=== PATIENT | female | born 1975 | race Caucasian/White ===

== ENCOUNTER 2023-02-01 12:06 | Outpatient (CLI) | payer BC, SELFPAY ==
[2023-02-01 21:41] LABS: Basophils Absolute Auto 0.02 K/uL (0.00-0.30); Basophils Percent Auto 0.3 % (0.0-3.0); Eosinophils Absolute Auto 0.07 K/uL (0.00-0.50); Hematocrit 45.3 % (33.0-51.0); Hemoglobin* 14.2 gm/dL (12.0-16.0); Immature Granulocytes Abs Auto 0.01 K/uL (0.00-0.30); Immature Granulocytes Pct Auto 0.1 %; Lymphocytes Absolute Auto 1.81 K/uL (0.90-2.90); Lymphocytes Percent Auto 25.6 % (20-44); Mean Corpuscular HGB Conc 31 gm/dL (32-36); Mean Corpuscular Hemoglobin 26 pg (26-34); Mean Corpuscular Volume 84 fL (80-100); Monocytes Percent Auto 5.6 % (0.0-11.0); Neutrophils Absolute Auto 4.77 K/uL (1.7-7.0); Neutrophils Percent Auto 67.4 % (42.0-72.0); Platelet Count* 380 K/uL (140-440); RDW Coefficient of Variation % 13.3 % (11.5-15.5); Red Blood Count 5.39 m/uL (4.00-5.20); White Blood Count* 7.08 K/uL (4.50-11.00)
[2023-02-01 21:42] LABS: Albumin* 4.3 g/dL (3.3-5.0); Chloride* 105 mmol/L (96-114)
[2023-02-01 21:43] LABS: Potassium* 5.2 mmol/L (3.6-5.1); Slide Review Reflex No; Sodium* 139 mmol/L (135-149)
[2023-02-01 21:45] LABS: Aspartate Amino Transferase* 26 U/L (12-35); Bilirubin Total* 0.3 mg/dL (0.1-1.5); Carbon Dioxide* 27 mmol/L (20-32); Creatinine* 0.7 mg/dL (0.5-1.5); Estimated Glomerular Filt Rate 108 ml/min
[2023-02-01 21:46] LABS: Alanine Aminotransferase* 24 U/L (4-35); Alkaline Phosphatase* 83 U/L (40-150); Blood Urea Nitrogen* 9 mg/dL (5-24); Calcium* 9.4 mg/dL (8.4-10.6); Glucose* 99 mg/dL (60-115)
[2023-02-01 21:56] LABS: NT Pro B Type NatriureticPept* 60 pg/mL
[2023-02-01 22:13] LABS: Amylase* 50 U/L (18-89); Lipase* 71 U/L (23-300)
[2023-02-03 22:56] LABS: Prolactin 6.3 ng/mL (2.8-29.2)
== END 2023-02-01 12:07 | disposition home or self-care (01) ==
PROVIDERS: PCP Nurse Practitioner Family; Visit Provider Nurse Practitioner Family
DX: R63.5 Abnormal weight gain (principal); R10.13 Epigastric pain; R06.00 Dyspnea, unspecified
CPT/HCPCS: 80053; 82150; 83690; 83880; 84146; 84443; 85025

== ENCOUNTER 2023-02-25 09:19 | Inpatient (IN) | payer BC, SELFPAY ==
[2023-02-25 09:25] VITALS: BP 142/100; PULSE 94; RESP 14; TEMP 36.5; O2SAT 97; BMI 28.4
--- NOTE | 2023-02-25 09:33 | ED.ABDPAIN ---
HPI - Abdominal Pain General Time Seen by Provider: 09:33 Date Seen: 02/25/23 Chief Complaint: Abdominal Pain Stated Complaint: Gallbladder issues--from US Time Seen by Provider: 02/25/23 09:26 Source: patient, RN notes reviewed and old records reviewed Mode of arrival: ambulatory Limitations: no limitations History of Present Illness HPI narrative: Patient is a 47-year-old female referred to the ER by our radiologist Dr. Renee after her right upper quadrant ultrasound reportedly is showing cholecystitis. Patient notes that her abdominal pain is worse after having the ultrasound done. She notes she really has not been able to eat anything in 3 days, has had abdominal pain. No fevers. No change in bowel habits. She has a bit of a complex history and was seen by Brent San in the [place] [facility] on February 01 to establish care and then follow-up February 12. Patient has been complaining of shortness of breath, weight gain, abdominal pain. 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 Her labs were reviewed from February 01 in her CBC and liver functions were normal. She was started on chlorthalidone on the February 12 visit. She feels that this has decreased her lower extremity edema. She had a normal chest x-ray done on 02/01. She has not had any chest pain. Her fatigue has been worse the last 3 days, has been complaining of fatigue as well. Review reader to Brent's detailed notes from February 01 and February 12. She is status post hysterectomy, thus no chance of . Patient does not report having had her echo that was to be ordered outpatient. I do not see any report in the system either. elicited complaint: abdominal pain Related Data Hx Last Menstrual Period: Status post hysterectomy Patient : No Home Medications Medication Instructions Recorded Confirmed escitalopram oxalate 20 mg tablet 20 mg PO QDAY 05/24/22 02/12/23 octreotide,microspheres 20 mg 20 mg IM Q4W 05/24/22 02/12/23 intramuscular susp, extended release venlafaxine 150 mg tablet,extended 150 mg PO QAM 05/24/22 02/12/23 release 24 hr trazodone 100 mg tablet 200 mg PO QHS 02/01/23 02/12/23 Previous Rx's Medication Instructions Recorded omeprazole magnesium 20 mg 20 mg PO QDAY 30 days #30 tabs 02/01/23 tablet,delayed release (Prilosec OTC) chlorthalidone 25 mg tablet 25 mg PO ONCE 90 days #90 tabs 02/12/23 Allergies Allergy/AdvReac Type Severity Reaction Status Date / Time No Known Drug Allergies Allergy Verified 02/25/23 09:30 Review of Systems Status of ROS Reports: 10 or more systems reviewed and unremarkable except as noted in History and below [facility] (Updated 02/25/23 @ 12:25 by Yumiko Mckeon MD) History of blood transfusion (2010) ?Z92.89 - Personal history of other medical treatment (ICD-10) History of prolactinoma (2009) ?Z86.018 - Personal history of other benign neoplasm (ICD-10) History of traumatic injury of head (1990) ?Z87.828 - Personal history of other (healed) physical injury and trauma (ICD-10) Hx of abnormal cervical Pap smear ?Z87.42 - Personal history of other diseases of the female genital tract (ICD-10) Surgical History (Updated 02/17/23 @ 12:53 by Margaret Peck) History of brain surgery (2009) ?Z98.890 - Other specified postprocedural states (ICD-10) History of bunionectomy (1997) ?Z98.890 - Other specified postprocedural states (ICD-10) History of carpal tunnel release of both wrists ?Z98.890 - Other specified postprocedural states (ICD-10) History of hysterectomy (06/02/16) ?Z90.710 - Acquired absence of both cervix and uterus (ICD-10) History of rectal surgery (06/02/16) ?Z98.890 - Other specified postprocedural states (ICD-10) History of tonsillectomy ?Z90.89 - Acquired absence of other organs (ICD-10) Hx of hemorrhoidectomy ?Z98.890 - Other specified postprocedural states (ICD-10) Family History (Updated 02/17/23 @ 12:55 by Margaret Peck) Mother Alcohol dependence Tuberculosis Father Alzheimers disease Uncle Cancer Other Ankylosing spondylitis Social History (Updated 01/28/23 @ 09:05 by Bess Palmer ~ PSR) Narrative: , 3 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, [employer] Nicotine dependence-vaporizer, ex-smoker Rarely consumes alcohol Does not exercise, active lifestyle with kids Smoking Status: Former smoker How often do you have a drink containing alcohol: never How often do you have six or more drinks on one occasion: Never AUDIT-C Alcohol total score: 0 Non-prescribed substance use: denies use service: No Exam Const: Vital Signs, click to edit/add: Vital Signs - 24 hr 02/25/23 09:25 02/25/23 09:37 Temperature 97.7 F Pulse Rate [Right Pulse Oximeter] 94 Respiratory Rate 14 Blood Pressure [Ri ght Upper Arm] 142/100 H Pulse Oximetry 97 100 Oxygen Delivery Me thod Room Air Documenting provider has reviewed patient's vital signs: yes Common normals: no apparent distress, average body habitus, oriented x3, no limitations, healthy appearing and alert General appearance: cooperative, comfortable, well kempt and well developed HENMT: Common normals: normocephalic, head/scalp atraumatic, hearing grossly normal bilaterally and external nose normal Head and scalp: normocephalic and atraumatic Nose: external nose normal Eye: Common normals: PERRL, EOMs intact bilaterally, conjunctivae normal and no scleral icterus Conjunctiva: conjunctiva(e) normal Pupil: PERRL Neck & C-Spine: Common normals: full ROM, no lymphadenopathy, supple and no JVD Chest: Other: Note, do not hear a cardiac murmur today but it has been noted prior. Did auscultate twice just to make sure I was not missing it. Resp: Common normals: normal respiratory effort, no retractions, no use of accessory muscles and clear to auscultation bilaterally Effort & inspection: able to speak in complete sentences Auscultation: clear to auscultation bilaterally Cardio: Common normals: no JVD, regular rate, regular rhythm, S1 normal heart sound, S2 normal heart sound, no gallops, no clicks and no murmurs Rate: regular rate Rhythm: regular rhythm Heart sounds: S1 normal and S2 normal GI: Common normals: Normal to inspection, nondistended, normoactive bowel sounds present and soft to palpation Palpation: soft Other: Has right upper quadrant tenderness without rebound or true guarding on my exam. Do not feel any organomegaly. Extremity: Common normals: no pedal edema Other: No pretibial edema on examination. Neuro: Common normals: oriented x3 Sensorium/orientation: alert Speech: speech normal Psych: Appearance: well kempt Skin: Narrative: Some facial acne but otherwise no rash noted. Course Course Hospital Course: Patient has complex underlying medical history but notably normal prolactin and TSH on her labs. Will be getting EKG, consider chest x-ray if needed but just had 1 on 02/01 and lungs are clear and cleared peripheral edema per report. Her ultrasound is showing acute cholecystitis on report from the radiologist. Need to obtain full complement of labs to see where she is at today, make sure there is no evidence of any pancreatitis. Will talk to our general surgeon on-call. Will do a D-dimer and troponin, review repeat her EKG given her shortness of breath and peripheral edema symptoms. I do not detect cardiac murmur today, possibly the fluid overload she was experiencing has been helped with the chlorthalidone. She believes she has been on that about 10 days now. Will screen for COVID as well. Reevaluation(s) Reevaluation #1: Patient's potassium has come back low at 2.8. It was normal prior to the chlorthalidone. This is very likely to the diuretic and is likely responsible for her EKG changes. However, given her complaints of shortness of breath, cardiac murmur heard before as well as the EKG changes, do think we should optimize patient's safety and know that we have a normal echo prior to surgery. I have ordered this urgently. Time: 10:58 Consultations Consultation #1: Have given a preliminary report to our surgeon Dr. Cloud. She will stop by later after her next case, by that time hopefully we will have more input and labs. Time: 10:22 Consultation #2: Have spoken with Dr. Hernandez regarding this patient, he does accept care. Did review with him the hypokalemia, our approach to replacing it. The surgeon was not strongly in support of this patient needing antibiotics at this time. I will leave this to the hospitalist to decide later if they feel she should have evidence of requiring it. Otherwise, plan is for surgery tomorrow pending normal cardiac echo. Presumably it is the hypokalemia that is responsible for her EKG changes. Nonetheless, will still obtain echo to ensure no regional wall motion abnormalities or valvular dysfunction. Time: 12:23 Vital Signs Vital signs: Initial Vital Signs Temperature 97.7 F 02/25/23 09:25 Temperature Source Temporal Artery Scan 02/25/23 09:25 Pulse Rate 94 02/25/23 09:25 Respiratory Rate 14 02/25/23 09:25 Blood Pressure 142/100 H 02/25/23 09:25 Blood Pressure Mean 114 H 02/25/23 09:25 Blood Pressure Position Sitting 02/25/23 09:25 Pulse Oximetry 97 02/25/23 09:25 Oxygen Delivery Method Room Air 02/25/23 09:25 Vital Signs Temperature 97.7 F 02/25/23 09:25 Pulse Rate 94 02/25/23 09:25 Respiratory Rate 14 02/25/23 09:25 Blood Pressure 142/100 H 02/25/23 09:25 Pulse Oximetry 97 02/25/23 09:25 Oxygen Delivery Method Room Air 02/25/23 09:25 Temperature 97.7 F 02/25/23 09:25 Pulse Rate 94 02/25/23 09:25 Respiratory Rate 14 02/25/23 09:25 Blood Pressure 142/100 H 02/25/23 09:25 Pulse Oximetry 100 02/25/23 09:37 Oxygen Delivery Method Room Air 02/25/23 09:25 MDM - Abdominal Pain Lab Data Attestation: I reviewed the patient's lab results. Labs: Lab Results 02/25/23 02/25/23 02/25/23 Range/Units 09:37 10:05 10:10 WBC 8.01 (4.50-11.00) K/uL RBC 5.56 H (4.00-5.20) m/uL Hgb 14.5 (12.0-16.0) gm/dL Hct 44.3 (33.0-51.0) % MCV 80 (80-100) fL MCH 26 (26-34) pg MCHC 33 (32-36) gm/dL RDW Coeff of Susan 12.9 (11.5-15.5) % Plt Count 453 H (140-440) K/uL Neut % (Auto) 70.5 (42.0-72.0) % Lymph % (Auto) 21.6 (20-44) % Hendry % (Auto) 6.6 (0.0-11.0) % Eos % (Auto) 0.5 (0.0-7.0) % Baso % (Auto) 0.4 (0.0-3.0) % Neut # (Auto) 5.65 (1.7-7.0) K/uL Lymph # (Auto) 1.73 (0.90-2.90) K/uL Hendry # (Auto) 0.50 (0.00-0.90) K/UL Eos # (Auto) 0.04 (0.00-0.50) K/uL Baso # (Auto) 0.03 (0.00-0.30) K/uL D-Dimer Quant (PE/DVT) 0.28 (0.00-0.50) ug/ml Sodium 133 L (135-149) mmol/L Potassium 2.8 L* (3.6-5.1) mmol/L Chloride 92 L (96-114) mmol/L Carbon Dioxide 35 H (20-32) mmol/L BUN 13 (5-24) mg/dL Creatinine 0.9 (0.5-1.5) mg/dL Estimated Creat Clear 81.63 Estimated GFR 80 ml/min Glucose 116 H (60-115) mg/dL Lactate 1.9 (0.5-1.9) mmol/L Calcium 8.8 (8.4-10.6) mg/dL Total Bilirubin 0.4 (0.1-1.5) mg/dL Direct Bilirubin 0.2 (0.0-0.5) mg/dL AST 30 (12-35) U/L ALT 28 (4-35) U/L Alkaline Phosphatase 99 (40-150) U/L C-Reactive Protein 1.4 H (0.5-1.0) mg/dL NT-Pro-B Natriuret Pep 38 pg/mL Total Protein 7.6 (6.0-8.3) g/dL Albumin 4.4 (3.3-5.0) g/dL Lipase 167 (23-300) U/L SARS-CoV-2 (PCR) Negative SARS-CoV-2 (Negative) Influenza Type A (PCR) Negative PCR FLU A (Negative) Influenza Type B (PCR) Negative PCR FLU B (Negative) RSV (PCR) Negative PCR RSV (Negative) POC Troponin I 0.00 L (0.01-0.04) ng/ml Imaging Data US - abdomen: Attestation: I have reviewed the pertinent imaging results. Radiologist's impression: Patient: MODESTA OVALLE Facility:?[facility] Patient ID:?[id number] Site Patient ID:?[id number]. Site :?[id number] Study:?US Abdomen DR RENEE TO READ-02/25/2023 9:29:45 AM Ordering Physician:Olivia Beauchamp Final Report: INDICATION: EPIGASTRIC AND RUQ PAIN COMPARISON: CT 08/14/2021 TECHNIQUE: Real time cuellar scale imaging and color Doppler analysis was performed of the right upper quadrant. FINDINGS: Mild coarsening of the hepatic echotexture. There is an area of decreased echogenicity posteriorly measuring 2.4 x 1.8 x 2.7 cm. There is a normal appearance of the hepatic IVC and proximal abdominal aorta. There is no evidence of ascites. The gallbladder is distended and there is a moderately large amount of sludge and echogenic foci within the gallbladder lumen. The gallbladder wall measures 3 mm in thickness. The common bile duct measures 6 mm in diameter at the level of the jose hepatis. The pancreas is not well-visualized. There is no evidence of a stone or hydronephrosis within the right kidney. The right kidney measures 13.0 cm in length. IMPRESSION: Distended gallbladder with gallbladder sludge and cholesterol stones along with positive sonographic Bear`s sign concerning for cholecystitis. This was discussed with the referring clinician and the patient was sent to the emergency department. Mild fatty steatosis with indeterminate area of decreased echogenicity within the left hepatic lobe posteriorly measuring 2.7 cm. Incomplete visualization of the pancreas due to overlying bowel gas. Dictated by Jeremías Renee MD @ 02/25/2023 10:12:20 AM (Electronic Signature) ECG Data Attestation: I personally reviewed and interpreted this ECG as follows: (Normal sinus rhythm, 88 beats per minute. Q-waves V1 V2. Mild downsloping ST segment changes inferior and lateral precordial leads, certainly be through through V6. This seems to be changed from the EKG on February 01.) ECG interpretation date: 02/25/23 ECG interpretation time: 10:40 Critical Care Time Critical Care Time Critical Care Time: No Discharge Plan Discharge Clinical Impression: Acute cholecystitis, Acute hypokalemia Patient Disposition: Admitted As Inpatient Condition: Stable Prescriptions: No Action venlafaxine 150 mg tablet extended release 24 hr 150 mg PO QAM escitalopram oxalate 20 mg tablet 20 mg PO QDAY octreotide,microspheres 20 mg suspension,extended rel recon 20 mg IM Q4W trazodone 100 mg tablet 200 mg PO QHS omeprazole magnesium [Prilosec OTC] 20 mg tablet,delayed release (DR/EC) 20 mg PO QDAY 30 Days Qty: 30 0RF chlorthalidone 25 mg tablet 25 mg PO ONCE 90 Days Qty: 90 3RF Follow Up/Referrals: Quynh San, [employer], [employer]GER [Primary Care Provider] -
[2023-02-25 09:37] VITALS: O2SAT 100
[2023-02-25 10:16] LABS: Basophils Absolute Auto 0.03 K/uL (0.00-0.30); Basophils Percent Auto 0.4 % (0.0-3.0); Eosinophils Absolute Auto 0.04 K/uL (0.00-0.50); Eosinophils Percent Auto 0.5 % (0.0-7.0); Hematocrit 44.3 % (33.0-51.0); Hemoglobin* 14.5 gm/dL (12.0-16.0); Immature Granulocytes Abs Auto 0.03 K/uL (0.00-0.30); Immature Granulocytes Pct Auto 0.4 %; Lymphocytes Absolute Auto 1.73 K/uL (0.90-2.90); Lymphocytes Percent Auto 21.6 % (20-44); Mean Corpuscular HGB Conc 33 gm/dL (32-36); Mean Corpuscular Hemoglobin 26 pg (26-34); Mean Corpuscular Volume 80 fL (80-100); Monocytes Percent Auto 6.6 % (0.0-11.0); Neutrophils Absolute Auto 5.65 K/uL (1.7-7.0); Neutrophils Percent Auto 70.5 % (42.0-72.0); Platelet Count* 453 K/uL (140-440); RDW Coefficient of Variation % 12.9 % (11.5-15.5); Red Blood Count 5.56 m/uL (4.00-5.20); White Blood Count* 8.01 K/uL (4.50-11.00)
[2023-02-25 10:20] LABS: Slide Review Reflex No
[2023-02-25 10:23] LABS: Lactate* 1.9 mmol/L (0.5-1.9)
[2023-02-25] MEDS: KETOROLAC 15 MG/ML inj IVP (10:31)
[2023-02-25 10:37] LABS: D Dimer Quantitative* 0.28 ug/ml (0.00-0.50)
[2023-02-25 10:39] LABS: Albumin* 4.4 g/dL (3.3-5.0); Chloride* 92 mmol/L (96-114)
[2023-02-25 10:40] LABS: Sodium* 133 mmol/L (135-149)
[2023-02-25 10:42] LABS: Creatinine* 0.9 mg/dL (0.5-1.5); Est. Creatinine Clearance* 81.63; Estimated Glomerular Filt Rate 80 ml/min
[2023-02-25 10:43] LABS: Alanine Aminotransferase* 28 U/L (4-35); Alkaline Phosphatase* 99 U/L (40-150); Aspartate Amino Transferase* 30 U/L (12-35); Bilirubin Direct* 0.2 mg/dL (0.0-0.5); Bilirubin Total* 0.4 mg/dL (0.1-1.5); Blood Urea Nitrogen* 13 mg/dL (5-24); Calcium* 8.8 mg/dL (8.4-10.6); Carbon Dioxide* 35 mmol/L (20-32); Glucose* 116 mg/dL (60-115); Lipase* 167 U/L (23-300); Total Protein* 7.6 g/dL (6.0-8.3)
[2023-02-25 10:46] LABS: C Reactive Protein* 1.4 mg/dL (0.5-1.0)
[2023-02-25 10:48] LABS: Potassium* 2.8 mmol/L (3.6-5.1)
[2023-02-25 10:56] LABS: PCR FLU A Negative PCR FLU A (Negative); PCR FLU B Negative PCR FLU B (Negative); PCR RSV Negative PCR RSV (Negative)
[2023-02-25 11:01] LABS: SARS PCR* Negative SARS-CoV-2 (Negative)
[2023-02-25 11:07] LABS: NT Pro B Type NatriureticPept* 38 pg/mL
--- NOTE | 2023-02-25 12:01 | P.GSCN_ITS ---
History of Present Illness Consult details Date Seen: 02/25/23 Consult date: 02/25/23 Narrative: Patient is a 47-year-old female who was undergoing an abdominal ultrasound as an outpatient for on and off abdominal pain for the last 6 months. She states that her symptoms have been feeling bloated, nauseous and having pain on the right side. The pain has been coming and going, but did seem to be triggered by the ultrasound exam and is now not going away. She also elicits an unintentional 50 lb weight gain and was recently started on a diuretic. She does think that this has helped with her lower extremity swelling. She was also recently diagnosed with a heart murmur, but has not had this worked up with an echo yet. Her abdominal surgical history is positive for a rectal prolapse repair x2, appendectomy in some sort of surgery for a still (patient was unsure exactly what occurred). She denies any problems with anesthesia, bleeding or blood clots. Review of Systems Status of ROS: Reports: 6 or more systems reviewed and unremarkable except as noted in History and below [facility] Medical History (Updated 02/25/23 @ 12:06 by Lizzy Cloud MD) History of blood transfusion (2010) ?Z92.89 - Personal history of other medical treatment (ICD-10) History of prolactinoma (2009) ?Z86.018 - Personal history of other benign neoplasm (ICD-10) History of traumatic injury of head (1990) ?Z87.828 - Personal history of other (healed) physical injury and trauma (ICD-10) Hx of abnormal cervical Pap smear ?Z87.42 - Personal history of other diseases of the female genital tract (ICD-10) Surgical History (Updated 02/17/23 @ 12:53 by Margaret Peck) History of brain surgery (2009) ?Z98.890 - Other specified postprocedural states (ICD-10) History of bunionectomy (1997) ?Z98.890 - Other specified postprocedural states (ICD-10) History of carpal tunnel release of both wrists ?Z98.890 - Other specified postprocedural states (ICD-10) History of hysterectomy (06/02/16) ?Z90.710 - Acquired absence of both cervix and uterus (ICD-10) History of rectal surgery (06/02/16) ?Z98.890 - Other specified postprocedural states (ICD-10) History of tonsillectomy ?Z90.89 - Acquired absence of other organs (ICD-10) Hx of hemorrhoidectomy ?Z98.890 - Other specified postprocedural states (ICD-10) Family History (Updated 02/17/23 @ 12:55 by Margaret Peck) Mother Alcohol dependence Tuberculosis Father Alzheimers disease Uncle Cancer Other Ankylosing spondylitis Social History (Updated 01/28/23 @ 09:05 by Bess Palmer ~ PSR) Narrative: , 3 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, [employer] Nicotine dependence-vaporizer, ex-smoker Rarely consumes alcohol Does not exercise, active lifestyle with kids Smoking Status: Former smoker How often do you have a drink containing alcohol: never How often do you have six or more drinks on one occasion: Never AUDIT-C Alcohol total score: 0 Non-prescribed substance use: denies use service: No Meds Home Medications and Allergies Home Medications Medication Instructions Recorded Confirmed Type escitalopram oxalate 20 mg tablet 20 mg PO QDAY 05/24/22 02/12/23 History octreotide,microspheres 20 mg 20 mg IM Q4W 05/24/22 02/12/23 History intramuscular susp, extended release venlafaxine 150 mg tablet,extended 150 mg PO QAM 05/24/22 02/12/23 History release 24 hr trazodone 100 mg tablet 200 mg PO QHS 02/01/23 02/12/23 History Allergies Allergy/AdvReac Type Severity Reaction Status Date / Time No Known Drug Allergies Allergy Verified 02/25/23 09:30 Exam Narrative: Exam Narrative: General: Alert and oriented, no acute distress. Respiratory: Equal breath rise bilaterally, maintained on room air CV: Regular rhythm rate, well perfused Abdomen: Mild distention soft, tender to palpation right upper quadrant with no guarding or rebound. Well-healed surgical scar incisions. Const: Vital Signs, click to edit/add: Vital Signs - 24 hr 02/25/23 09:25 02/25/23 09:37 Temperature 97.7 F Pulse Rate [Right Pulse Oximeter] 94 Respiratory Rate 14 Blood Pressure [Ri ght Upper Arm] 142/100 H Pulse Oximetry 97 100 Oxygen Delivery Me thod Room Air Results Labs Labs: Abnormal lab results 02/25/23 02/25/23 Range/Units 09:37 10:05 RBC 5.56 H (4.00-5.20) m/uL Plt Count 453 H (140-440) K/uL Sodium 133 L (135-149) mmol/L Potassium 2.8 L* (3.6-5.1) mmol/L Chloride 92 L (96-114) mmol/L Carbon Dioxide 35 H (20-32) mmol/L Glucose 116 H (60-115) mg/dL C-Reactive Protein 1.4 H (0.5-1.0) mg/dL POC Troponin I 0.00 L (0.01-0.04) ng/ml Diabetes panel 02/25/23 Range/Units 10:05 Sodium 133 L (135-149) mmol/L Potassium 2.8 L* (3.6-5.1) mmol/L Chloride 92 L (96-114) mmol/L Carbon Dioxide 35 H (20-32) mmol/L BUN 13 (5-24) mg/dL Creatinine 0.9 (0.5-1.5) mg/dL Glucose 116 H (60-115) mg/dL Calcium 8.8 (8.4-10.6) mg/dL AST 30 (12-35) U/L ALT 28 (4-35) U/L Alkaline Phosphatase 99 (40-150) U/L Total Protein 7.6 (6.0-8.3) g/dL Albumin 4.4 (3.3-5.0) g/dL Calcium panel 02/25/23 Range/Units 10:05 Calcium 8.8 (8.4-10.6) mg/dL Albumin 4.4 (3.3-5.0) g/dL Pituitary panel 02/25/23 Range/Units 10:05 Sodium 133 L (135-149) mmol/L Potassium 2.8 L* (3.6-5.1) mmol/L Chloride 92 L (96-114) mmol/L Carbon Dioxide 35 H (20-32) mmol/L BUN 13 (5-24) mg/dL Creatinine 0.9 (0.5-1.5) mg/dL Glucose 116 H (60-115) mg/dL Calcium 8.8 (8.4-10.6) mg/dL Adrenal panel 02/25/23 Range/Units 10:05 Sodium 133 L (135-149) mmol/L Potassium 2.8 L* (3.6-5.1) mmol/L Chloride 92 L (96-114) mmol/L Carbon Dioxide 35 H (20-32) mmol/L BUN 13 (5-24) mg/dL Creatinine 0.9 (0.5-1.5) mg/dL Glucose 116 H (60-115) mg/dL Calcium 8.8 (8.4-10.6) mg/dL Total Bilirubin 0.4 (0.1-1.5) mg/dL AST 30 (12-35) U/L ALT 28 (4-35) U/L Alkaline Phosphatase 99 (40-150) U/L Total Protein 7.6 (6.0-8.3) g/dL Albumin 4.4 (3.3-5.0) g/dL All other labs normal. Imaging Abdominal ultrasound report/results: report reviewed and image reviewed Assessment and Plan Assessment and plan (1) Acute cholecystitis: Status: Acute Plan Patient is a 47-year-old female who presents to the emergency department from Radiology with severe right upper quadrant abdominal pain. Workup was obtained with ultrasound demonstrating a significant amount of gallbladder sludge and gallbladder wall thickening. Her clinical history is consistent with acute cholecystitis. Her labs demonstrate no leukocytosis or abnormal liver panel, making this decision for choledocholithiasis low. On BMP she does have hypokalemia. She also has a history of an newly diagnosed murmur and peripheral edema. Agree with admitting to the hospital for potassium replacement and further cardiology workup before pursuing any operative intervention. I had a detailed conversation with the patient regarding the diagnosis of acute cholecystitis. We discussed the treatment options including observation with diet modification and laparoscopic cholecystectomy. We discussed the risks of surgery (including but not limited to) the risks of bleeding, infection, injury to other structures in the abdomen including bile duct injury, bile leak and conversion to an open operation. We discussed the possibility that the patient's pain not improve with surgery. We discussed the possibility of permanent post-operative diarrhea that may require medical management. Additionally, the conceivably of complications requiring additional surgery or further hospitalization were also discussed including the risks of [place], respiratory failure, stroke and blood clots. The patient voiced an understanding of our conversation, had the opportunity to ask questions, agreed to accept the risks of surgery and asked that we proceed with surgery. -hospitalist consulted, appreciate their management and preoperative optimization -repeat liver panel in the morning -patient tentatively on the schedule for laparoscopic cholecystectomy tomorrow morning at 11:00 a.m.
[2023-02-25] MEDS: MORPHINE 2 MG/ML inj IVP ×5 (12:07→22:28)
[2023-02-25] MEDS: ONDANSETRON 2 MG/ML inj 4 MG IVP (12:08)
[2023-02-25 13:14] VITALS: BP 115/80; PULSE 96; RESP 14; TEMP 37; O2SAT 96; O2SAT 99; BMI 28.4
[2023-02-25] MEDS: LACTATED RINGERS 1000 ML 1,000 ML 125 ML IV (14:31)
[2023-02-25] MEDS: POTASSIUM BICARB 25 MEQ EFFERVESCENT TAB PO ×4 (14:32→21:02)
[2023-02-25 14:41] LABS: Magnesium* 2.6 mg/dL (1.5-2.6)
[2023-02-25 15:00] VITALS: BP 124/94; PULSE 85; RESP 18; TEMP 36.7; O2SAT 99
--- NOTE | 2023-02-25 16:50 | P.IMHP_ITS ---
Hospitalist- H&P: HPI History of Present Illness Date Seen: 02/25/23 Chief complaint: Gallbladder issues--from US Narrative: 47-year-old female admitted with abdominal pain. She was admitted to the hospital after obtaining an abnormal right upper quadrant ultrasound in the radiology department today. Ultrasound was consistent with findings of acute cholecystitis. Patient has been having worsening postprandial nausea and bloating and pain over months. Brent San CNP, her primary care provider had referred her for the ultrasound to evaluate this. She has not had any fever. She reports no problems with her bowels. No diarrhea, constipation, melena, bleeding, ramos colored stools. She does note that she has had possibly 50 lb of weight gain over the last 5 months. The cause for this is uncertain. She has contacted her supervisory clerk, Dr. 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 In clinic she was also seen to have lower extremity edema and there was thought to be some fluid weight gain. She was started on chlorthalidone for that about 10 days ago. She does not have any heart history. Two years ago she was having recurrent hospitalizations with colitis. She had an episode in April of 2020 and was hospitalized in December of 2020. On both occasions she had crampy abdominal pain. She subsequently did have a colonoscopy with Dr. Brewer with relatively normal findings and relatively normal biopsy results. She has had no obvious colitis since that time. Review of Systems Narrative: She reports she has generally been doing well except for the past few months of postprandial pain and bloating and the recent weight gain. No fevers. No respiratory illness or chest pain. She does report that she thinks she has had somewhat progressive dyspnea with exertion over the last few weeks. No orthopnea. [facility] Medical History (Updated 02/25/23 @ 17:08 by Parth Hernandez MD) Edema ?R60.9 - Edema, unspecified (ICD-10) History of blood transfusion (2010) ?Z92.89 - Personal history of other medical treatment (ICD-10) History of prolactinoma (2009) ?Z86.018 - Personal history of other benign neoplasm (ICD-10) History of traumatic injury of head (1990) ?Z87.828 - Personal history of other (healed) physical injury and trauma (ICD-10) Hx of abnormal cervical Pap smear ?Z87.42 - Personal history of other diseases of the female genital tract (ICD-10) Surgical History History of brain surgery (2009) ?Z98.890 - Other specified postprocedural states (ICD-10) History of bunionectomy (1997) ?Z98.890 - Other specified postprocedural states (ICD-10) History of carpal tunnel release of both wrists ?Z98.890 - Other specified postprocedural states (ICD-10) History of hysterectomy (06/02/16) ?Z90.710 - Acquired absence of both cervix and uterus (ICD-10) History of rectal surgery (06/02/16) ?Z98.890 - Other specified postprocedural states (ICD-10) History of tonsillectomy ?Z90.89 - Acquired absence of other organs (ICD-10) Hx of hemorrhoidectomy ?Z98.890 - Other specified postprocedural states (ICD-10) Family History Mother Alcohol dependence Tuberculosis Father Alzheimers disease Uncle Cancer Other Ankylosing spondylitis Social History (Updated 02/25/23 @ 16:59 by Parth Hernandez MD) Narrative: , 3 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, 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[employer] Nicotine dependence-vaporizer, ex-smoker Rarely consumes alcohol Occasionally uses cannabis Does not exercise, active lifestyle with kids Highest level of school completed/degree received: Bachelor's degree Smoking Status: Former smoker Second hand tobacco smoke exposure: Yes How often do you have a drink containing alcohol: never How often do you have six or more drinks on one occasion: Never AUDIT-C Alcohol total score: 0 Non-prescribed substance use: marijuana (any form) Non-prescribed substance use details: marijuana once a week for anxiety and headaches, prescribed-smoking Caffeine: Yes (pop liter a day) service: No Meds Home Medications and Allergies Home Medications Medication Instructions Recorded Confirmed Type escitalopram oxalate 20 mg tablet 20 mg PO QDAY 05/24/22 02/25/23 History octreotide,microspheres 20 mg 20 mg IM Q4W 05/24/22 02/25/23 History intramuscular susp, extended release venlafaxine 150 mg tablet,extended 150 mg PO QAM 05/24/22 02/25/23 History release 24 hr trazodone 100 mg tablet 200 mg PO QHS 02/01/23 02/25/23 History bupropion HCl 300 mg 24 hr tablet, 300 mg PO QAM 02/25/23 02/25/23 History extended release mirtazapine 30 mg tablet 30 mg PO QPM 02/25/23 02/25/23 History Allergies Allergy/AdvReac Type Severity Reaction Status Date / Time No Known Drug Allergies Allergy Verified 02/25/23 09:30 Exam Narrative: Exam Narrative: She is alert and appears in no distress. She is oriented to her circumstances and gives good detail of her medical history. Eyes normal. Oropharynx normal. Small airway. Neck is supple out mass or adenopathy. Respirations are clear to auscultation. No wheezing rales rhonchi. Cardiovascular: S1, S2, regular rate and rhythm. No murmur gallop or rub. Abdomen: Bowel sounds active. Abdomen is soft she has mild to moderate right upper quadrant tenderness. The rest were abdomen is nontender there is no peritonitis and no mass. External genitalia normal. Extremities with trace edema in both ankles. She has intact peripheral pulses. No rash. Const: Vital Signs, click to edit/add: Vital Signs - 24 hr 02/25/23 09:25 02/25/23 09:37 02/25/23 13:14 Temperature 97.7 F 98.6 F Pulse Rate [Pulse Oximeter] 96 Pulse Rate [Right Pulse Oximeter] 94 Respiratory Rate 14 14 Blood Pressure [Le ft Arm] 115/80 Blood Pressure [Ri ght Upper Arm] 142/100 H Pulse Oximetry 97 100 96 Oxygen Delivery Me thod Room Air Room Air Documenting provider has reviewed patient's vital signs: yes Hospitalist - H&P: Result Labs Labs: Short CBC 02/25/23 Range/Units 10:05 WBC 8.01 (4.50-11.00) K/uL Hgb 14.5 (12.0-16.0) gm/dL Hct 44.3 (33.0-51.0) % Plt Count 453 H (140-440) K/uL BMP 02/25/23 10:05 Sodium 133 L Potassium 2.8 L* Chloride 92 L Carbon Dioxide 35 H BUN 13 Creatinine 0.9 Glucose 116 H Calcium 8.8 Liver Function 02/25/23 Range/Units 10:05 Total Bilirubin 0.4 (0.1-1.5) mg/dL Direct Bilirubin 0.2 (0.0-0.5) mg/dL AST 30 (12-35) U/L ALT 28 (4-35) U/L Alkaline Phosphatase 99 (40-150) U/L Albumin 4.4 (3.3-5.0) g/dL Assessment and Plan Assessment and plan (1) Acute cholecystitis: Problem comment: Relatively classic presentation of cholecystitis. I discussed general information about cholecystitis, laparoscopic cholecystectomy, postoperative complications. Patient has no history of problems with anesthesia, bleeding or clotting. Status: Acute (2) Acute hypokalemia: Problem comment: Likely due to chlorthalidone therapy. Replace and monitor. Status: Acute (3) Abnormal electrocardiogram: Problem comment: Normal electrocardiogram January 2023. Electrocardiogram today shows inferior and anterolateral ST segment depression which is new compared to 1 month ago. Initial troponin normal. Repeat. Echo pending. Status: Acute (4) Edema: Status: Acute Plan Patient is admitted to the hospital for cholecystitis. Needs evaluation of electrocardiographic changes with serial troponins, symptom and vital sign monitoring and echocardiogram. Potassium replacement. Total time spent today is 75 minutes, 50 minutes in coordination of care and discussing with patient, her and other providers management of abnormal EKG, hypokalemia, cholecystitis
[2023-02-25 17:19] LABS: Potassium* 3.1 mmol/L (3.6-5.1)
[2023-02-25 17:38] LABS: Troponin I* < 0.01 ng/mL (0.01-0.04)
--- NOTE | 2023-02-25 18:07 | PC.NURSE ---
End of Shift: Patient pleasant and cooperative, and arrived to the floor about 1300. Patient independent in room. Patient running LR at 125. Patient currently rates abdominal pain 4/10, 4 mg of morphine was given once. Patient taking ice chip.
[2023-02-25 21:00] VITALS: BP 123/98; PULSE 89; RESP 18; TEMP 36.4; O2SAT 99
[2023-02-25] MEDS: TRAZODONE HCL 50 MG TABLET 200 MG PO (21:02)
[2023-02-25] MEDS: LORazepam 2 MG/ML inj 0.5 MG IVP (22:27)
[2023-02-25 22:47] VITALS: BP 106/58; PULSE 85; RESP 18; TEMP 36.5; O2SAT 97
[2023-02-26] VITALS (19 sets, daily range): BP systolic 99–124; BP diastolic 52–82; PULSE 80–90; RESP 12–19; TEMP 36.2–36.7; O2SAT 90–100
[2023-02-26] MEDS: LACTATED RINGERS 1000 ML 1,000 ML 125 ML IV ×2 (00:18→09:05)
[2023-02-26] MEDS: MORPHINE 2 MG/ML inj IVP ×6 (04:14→17:46)
[2023-02-26] MEDS: SODIUM CHLORIDE 0.9 % (FLUSH) 10 ML SYRINGE 5 ML IVF (04:14)
[2023-02-26 06:48] LABS: Basophils Absolute Auto 0.02 K/uL (0.00-0.30); Basophils Percent Auto 0.4 % (0.0-3.0); Eosinophils Absolute Auto 0.09 K/uL (0.00-0.50); Eosinophils Percent Auto 1.6 % (0.0-7.0); Hematocrit 38.9 % (33.0-51.0); Hemoglobin* 12.5 gm/dL (12.0-16.0); Immature Granulocytes Abs Auto 0.02 K/uL (0.00-0.30); Immature Granulocytes Pct Auto 0.4 %; Lymphocytes Percent Auto 32.7 % (20-44); Mean Corpuscular HGB Conc 32 gm/dL (32-36); Mean Corpuscular Hemoglobin 26 pg (26-34); Mean Corpuscular Volume 82 fL (80-100); Monocytes Percent Auto 9.6 % (0.0-11.0); Neutrophils Absolute Auto 3.04 K/uL (1.7-7.0); Neutrophils Percent Auto 55.3 % (42.0-72.0); Platelet Count* 360 K/uL (140-440); Red Blood Count 4.75 m/uL (4.00-5.20)
[2023-02-26 06:49] LABS: Slide Review Reflex No
--- NOTE | 2023-02-26 06:50 | PC.NURSE ---
19-07: pleasant and cooperative. Indep in room. Rating pain 5-6/10 in abd, 4mg Morphine given x 2, offered pain relief. PRN dose Ativan given as a sleep aid, pt was able to sleep. NPO since midnight. VSS. ?
[2023-02-26 07:06] LABS: Albumin* 3.7 g/dL (3.3-5.0); Potassium* 3.3 mmol/L (3.6-5.1)
[2023-02-26 07:09] LABS: Alkaline Phosphatase* 85 U/L (40-150); Aspartate Amino Transferase* 25 U/L (12-35); Bilirubin Direct* 0.2 mg/dL (0.0-0.5); Bilirubin Total* 0.5 mg/dL (0.1-1.5); Lipase* 198 U/L (23-300); Total Protein* 6.2 g/dL (6.0-8.3)
[2023-02-26 07:10] LABS: Alanine Aminotransferase* 22 U/L (4-35)
[2023-02-26 07:16] LABS: Troponin I* < 0.01 ng/mL (0.01-0.04)
[2023-02-26] MEDS: VENLAFAXINE HCL ER 37.5 MG CAPSULE 150 MG PO (08:51)
[2023-02-26] MEDS: ESCITALOPRAM 10 MG TABLET 20 MG PO (08:52)
[2023-02-26] MEDS: POTASSIUM CHLORIDE 10 MEQ/100 ML PIGGYBACK 100 MEQ IVPB ×2 (09:27→10:32)
[2023-02-26] MEDS: PIPERACILLIN/TAZOBACTAM 3.375 GM INJ IVPB (11:15)
--- NOTE | 2023-02-26 11:35 | W.ANESCHARGE ---
Anesthesia Charges Start Date/Time Anesthesia Start Date: 02/26/23 Anesthesia Start Time: 11:04 Stop Date/Time Anesthesia Stop Date: 02/26/23 Anesthesia Stop Time: 12:31
[2023-02-26] MEDS: BUPIVACAINE 0.5% 30 ML INJECTION (12:08)
--- NOTE | 2023-02-26 12:23 | PM.GSPRC ---
Operative Note Date of procedure: 02/26/23 Pre-op diagnosis: Acute cholecystitis Post-op diagnosis: Same Type of Procedure: Laparoscopic cholecystectomy Indications: Patient is a 47-year-old female who presented to the emergency department with right upper quadrant abdominal pain. Workup was obtained with findings consistent with acute cholecystitis. Risks and benefits of operative intervention were discussed at length with the patient. Risks included but was not limited to: Bleeding, infection, risk of damage to surrounding structures, possible need for additional procedures, possible need to convert to an open operation and postoperative complications such as pneumonia, pulmonary emboli or [place]. All questions and concerns were addressed with the patient agreeing to proceed. Procedure Description: After discussing the risks and benefits of the procedure, the patient signed informed consent.? The operative site was marked and the patient was brought to the operating room and placed on the operating table in supine position.? Care was taken to pad the patient's pressure points.?? The patient was then intubated by anesthesia.?? The operative site was then prepped and draped in the usual sterile fashion.? A time-out was then performed. ? Entrance to the abdomen was gained via a 5 mm Visiport in the left upper quadrant. The abdomen was insufflated and briefly surveyed for signs of injury. There was none. 11 mm umbilical port was placed as well as 2 working ports along the right costal margin. Patient was then placed in reverse Trendelenburg position with the right side up. The gallbladder fundus was distended and difficult to grasp. A laparoscopic needle was inserted into the abdomen to decompress the gallbladder and 80 mL of thick biliary fluid removed. After decompression the fundus was grasped and retracted cephalad. The infundibulum was grasped. A combination of hook cautery and blunt dissection was used to carefully dissect out the cystic duct and artery until they could clearly be seen entering the gallbladder without any intervening structures. The gallbladder was dissected off the cystic plate to achieve the critical view. Once this was achieved the cystic duct and artery were each clipped with 2 clips proximally and 1 clip distally and transected with the scissors. The gallbladder was then taken off of the liver bed. A small accessory liver lobe was attached to the gallbladder. This was carefully dissected free with electrocautery away from the specimen. The gallbladder was then removed from the abdomen using an Endo-Catch bag. The gallbladder bed was surveyed for hemostasis. A small amount of bile which had spilled was suctioned from the abdomen. A small tear of the liver capsule was just medial to the gallbladder fossa. Cautery was used to the area. This was examined with decreased insufflation pressure, with no evidence of bleeding. A small piece of Surgicel was placed in the area to ensure hemostasis. The umbilical port fascia was closed with 0 Vicryl. All other ports removed under direct visualization. The skin was closed with absorbable subcuticular suture. Instrument sponge and needle counts were correct at the end of the case. The patient was then woken and transferred to the PACU in stable condition. Sterile dressings were then applied. ? Findings: A distended gallbladder, findings consistent with acute cholecystitis Anesthesia: GETA Surgeon: Lizzy Cloud MD Estimated blood loss (mL): 5 Specimen: Gallbladder Condition: stable Disposition: floor
[2023-02-26] MEDS: METOCLOPRAMIDE HCL 5 MG/ML INJ 10 MG IVP (12:30)
--- NOTE | 2023-02-26 12:30 | W.ANESCHARGE ---
Anesthesia Charges Start Date/Time Anesthesia Start Date: 02/26/23 Anesthesia Start Time: 11:04 Stop Date/Time Anesthesia Stop Date: 02/26/23 Anesthesia Stop Time: 12:31
[2023-02-26] MEDS: fentaNYL 100 MCG/2 ML inj 50 MCG IVP ×2 (12:40→12:53)
[2023-02-26] MEDS: HYDROmorphone 0.5 mg/0.5 ml inj IVP (13:24)
[2023-02-26] MEDS: POTASSIUM BICARB 25 MEQ EFFERVESCENT TAB PO (14:47)
--- NOTE | 2023-02-26 14:48 | PM.DS1 ---
DS: Providers Provider Date Seen: 02/26/23 Date of admission: 02/25/23 14:53 Primary care physician: Quynh aSn, ACQUISITION EDITOR, LAB SUPPORT TECHNICIAN Admitting Clinician: Lizzy Cloud MD Attending Physician on discharge: Lizzy Cloud MD Date of Discharge: 02/26/23 DS: Diagnosis Discharge Diagnosis (1) Abnormal electrocardiogram: Status: Acute Problem details: Normal electrocardiogram January 2023. Electrocardiogram today shows inferior and anterolateral ST segment depression which is new compared to 1 month ago. Serial troponins are normal. She was having substernal chest pain which was postprandial and likely due to her cholecystitis. Now resolved post cholecystectomy. Echocardiogram is normal. Recommend repeat EKG in 1-2 weeks. (2) Edema: Status: Acute Problem details: On diuretic. (3) Acute cholecystitis: Status: Acute Problem details: Relatively classic presentation of cholecystitis. I discussed general information about cholecystitis, laparoscopic cholecystectomy, postoperative complications. Patient has no history of problems with anesthesia, bleeding or clotting. (4) Acute hypokalemia: Status: Acute Problem details: Likely due to chlorthalidone therapy. Continue potassium as outpatient with outpatient follow-up (5) Weight gain: Status: Acute Problem details: Cause is uncertain. Outpatient follow-up DS: Summary Hospital Course Hospital Course: 47-year-old female admitted to the hospital with months of progressive postprandial epigastric discomfort and abnormality of an ultrasound showing probable cholecystitis. She was also found to have hypokalemia with a potassium of 2.8. She had electrocardiogram with new EKG changes showing ST depressions across the precordium. She was having substernal chest discomfort which was thought more likely due to cholecystitis than to cardiac ischemia as it occurred after meals. It is improved with her cholecystectomy. She had normal serial troponins and a normal echocardiogram. Her potassium was replaced orally. She underwent cholecystectomy today which was an uncomplicated procedure. She reports feeling better after surgery. Will discharge home when tolerating an oral diet. Status at Discharge Functional status at discharge: independent ambulation Overall status at discharge: patient is progressing back to baseline Time Spent with Patient Time attestation: Total time spent providing and/or coordinating discharge services: Time spent: Greater than 30 minutes Exam Narrative: Exam Narrative: Preoperative examination today shows she is in no distress. She reports feeling quite well with much improvement in her pain. Respirations are unlabored and clear to auscultation. Cardiovascular: S1, S2, regular rate and rhythm. No murmur gallop or rub. Abdomen is soft with mild right upper quadrant tenderness. 1+ edema in her ankles. Good perfusion. Const: Vital Signs, click to edit/add: Vital Signs - 24 hr 02/25/23 15:00 02/25/23 15:00 02/25/23 21:00 Temperature 98.1 F 97.6 F Pulse Rate Pulse Rate [Pulse Oximeter] 85 85 89 Respiratory Rate 18 18 18 Blood Pressure Blood Pressure [Le ft Arm] 124/94 H 123/98 H Pulse Oximetry 99 99 Oxygen Delivery Me thod Room Air Room Air Oxygen Flow Rate 02/25/23 22:47 02/25/23 22:47 02/26/23 03:00 Temperature 97.7 F Pulse Rate Pulse Rate [Pulse Oximeter] 85 85 Respiratory Rate 18 18 16 Blood Pressure Blood Pressure [Le ft Arm] 106/58 L Pulse Oximetry 97 Oxygen Delivery Me thod Room Air Oxygen Flow Rate 02/26/23 07:00 02/26/23 12:27 02/26/23 12:32 Temperature 97.9 F 97.6 F Pulse Rate 84 87 Pulse Rate [Pulse Oximeter] 80 Respiratory Rate 16 16 16 Blood Pressure 122/56 L 99/65 Blood Pressure [Le ft Arm] 105/71 Pulse Oximetry 98 96 98 Oxygen Delivery Me thod Room Air Room Air Room Air Oxygen Flow Rate 02/26/23 12:37 02/26/23 12:42 02/26/23 12:47 Temperature Pulse Rate 85 90 82 Pulse Rate [Pulse Oximeter] Respiratory Rate 19 14 14 Blood Pressure 117/57 L 122/82 101/52 L Blood Pressure [Le ft Arm] Pulse Oximetry 98 100 100 Oxygen Delivery Me thod Aerosol Mask Oxygen Flow Rate 6 02/26/23 13:03 Temperature 98.0 F Pulse Rate Pulse Rate [Pulse Oximeter] Respiratory Rate 12 Blood Pressure 123/78 Blood Pressure [Le ft Arm] Pulse Oximetry 93 Oxygen Delivery Me thod Room Air Oxygen Flow Rate Documenting provider has reviewed patient's vital signs: yes DS: Data Data Completed and Pending Labs on day of discharge: Labs from last 24 hours 02/26/23 02/26/23 02/25/23 14:38 06:28 16:59 WBC 5.50 RBC 4.75 Hgb 12.5 Hct 38.9 MCV 82 MCH 26 MCHC 32 RDW Coeff of Susan 13.0 Plt Count 360 Neut % (Auto) 55.3 Lymph % (Auto) 32.7 [place] % (Auto) 9.6 Eos % (Auto) 1.6 Baso % (Auto) 0.4 Neut # (Auto) 3.04 Lymph # (Auto) 1.80 [place] # (Auto) 0.50 Eos # (Auto) 0.09 Baso # (Auto) 0.02 Potassium Pending 3.3 L 3.1 L Total Bilirubin 0.5 Direct Bilirubin 0.2 AST 25 ALT 22 Alkaline Phosphatase 85 Troponin I < 0.01 L < 0.01 L Total Protein 6.2 Albumin 3.7 Lipase 198 Discharge Plan Discharge Disposition: Home, Self-Care Date of Admission: 02/25/23 14:53 Attending Provider on Discharge: Parth Hernandez Primary Care Provider: Quynh San Condition: Stable Anticipated Discharge Date/Time: 02/26/23 18:00 Discharge Medications: New oxycodone 5 mg tablet 5 mg PO Q6H PRN (Reason: pain) Qty: 15 0RF senna 8.6 mg capsule 8.6 mg PO DAILY PRN (Reason: constipation) Qty: 90 0RF potassium chloride 10 mEq tablet extended release 20 meq PO DAILY Qty: 60 0RF Continued venlafaxine 150 mg tablet extended release 24 hr 150 mg PO QAM escitalopram oxalate 20 mg tablet 20 mg PO QDAY octreotide,microspheres 20 mg suspension,extended rel recon 20 mg IM Q4W trazodone 100 mg tablet 200 mg PO QHS omeprazole magnesium [Prilosec OTC] 20 mg tablet,delayed release (DR/EC) 20 mg PO QDAY 30 Days Qty: 30 0RF chlorthalidone 25 mg tablet 25 mg PO ONCE 90 Days Qty: 90 3RF mirtazapine 30 mg tablet 30 mg PO QPM bupropion HCl 300 mg tablet extended release 24 hr 300 mg PO QAM Discharge Orders: Discharge Order (Routine); Ordered 02/26/23 Ordered By: Parth Hernandez Patient Education: General Anesthesia (DC), Laparoscopic Cholecystectomy (DC), Post-Operative Instructions: Laparoscopic Cholecystectomy Additional Instructions: You were prescribed a narcotic pain medication. In addition you may supplement with Tylenol and/or ibuprofen. Be sure to not exceed greater than 4 g of Tylenol in a 24 hour period. While on narcotic pain medicine please take stool softeners. A prescription of stool softeners has been sent to the pharmacy. Stop if having greater than 2 stools per day. You can shower starting tomorrow. Do not soak in a bath or go swimming for 2 weeks. Activity Level: No strenuous activity Activity Detail: Activity as tolerated. Avoid strenuous activity. No lifting greater than 20 lb for 2 weeks. Discharge Diet: Low Fat/Low Cholesterol Diet Detail: Continue a low-fat diet for 2 weeks after surgery. You can then resume a regular diet as tolerated. Follow Up Appointments: Lizzy Cloud MD [Staff Physician] - (Two week follow-up postop) Quynh San APRN, EDIN [Primary Care Provider] - (Appointment in 1-2 weeks. Check basic metabolic panel in 1-2 weeks. Repeat electrocardiogram in 1-2 weeks) Forms: [employer] Info Instructions
[2023-02-26] MEDS: OXYCODONE 5 MG TABLET PO (14:53)
[2023-02-26 14:59] LABS: Potassium* 3.6 mmol/L (3.6-5.1)
--- NOTE | 2023-02-26 15:09 | PC.NURSE ---
Patient alert and oriented x 3. Lung sounds clear and bowels sounds active x 4 quadrants. Pain reported to right upper quadrant the wraps around laterally to right flank and right shoulder. Pain is well managed with IV morphine. Independent in room. Patient brought down to OR for laparoscopic cholecystectomy, off unit at 1045 am and returned to unit at 1315. Pain reported to right upper quadrant, IV dilaudid given upon return and ice pack placed to right upper quadrant for pain. Awakens to verbal stimuli. O2 86% at 1330, oxygen applied at 1.5L and O2 levels increased to 92%. Patient able to wean to room air after 30 minutes. Encouraged to deep breathe. Tolerating ice chips and clear liquids.
--- NOTE | 2023-02-26 18:52 | PC.NURSE ---
Pt calm and cooperative during shift. Pt had pain ranging from 5-3 during shift. Pt?s diet advanced to regular and tolerating well. Pt was saline locked at 1625.?Pt discharged with at 1843.
== END 2023-02-26 18:43 | disposition home or self-care (01) | DRG 263 ==
LOC: ED 12:25 → MEDSURG 13:05
PROVIDERS: Family Medicine; Admitting Provider Surgery; Emergency Provider Family Medicine; PCP Nurse Practitioner Family; Visit Provider Surgery
PROC: 0FT44ZZ Resection of Gallbladder, Percutaneous Endoscopic Approach (ICD-10-PCS; CPT 47562; principal; 2023-02-26 11:00)
DX: K81.0 Acute cholecystitis (principal); R07.9 Chest pain, unspecified; E87.6 Hypokalemia; R94.31 Abnormal electrocardiogram [ECG] [EKG]; R60.9 Edema, unspecified; R63.5 Abnormal weight gain; Z87.820 Personal history of traumatic brain injury; Z86.018 Personal history of other benign neoplasm
CPT/HCPCS: 00790; 36415; 76705; 80053; 80076; 82248; 83605; 83690; 83735; 83880; 84132; 84484; 85025; 85379; 86140; 87338; 87631; 88304; 93005; 93306; 94761; 99284; 99285; A9270; J0330; J1100; J1170; J1885; J2060; J2250; J2270; J2405; J2543; J2704; J2710; J2765; J3010; J3480; J3490; J7120

== ENCOUNTER 2023-03-03 14:01 | Outpatient (CLI) | payer BC, SELFPAY | END 2023-03-03 14:02 | disposition home or self-care (01) | LOC: NFLDREF 14:02 | PROVIDERS: PCP Nurse Practitioner Family; Visit Provider Surgery | DX: R03.0 Elevated blood-pressure reading, without diagnosis of hypertension (principal); E55.9 Vitamin D deficiency, unspecified; R63.5 Abnormal weight gain | CPT/HCPCS: 80053 ==

== ENCOUNTER 2023-03-08 19:37 | Emergency (ER) | payer BC, SELFPAY ==
[2023-03-08 19:41] VITALS: BP 156/93; PULSE 103; RESP 20; TEMP 36; O2SAT 98; BMI 28.1
--- NOTE | 2023-03-08 22:12 | ED_ITS ---
HPI - General Adult General Time Seen by Provider: 22:12 Date Seen: 03/08/23 Chief complaint: Abdominal Pain Stated complaint: Blood clot and cramping after bowel movement Time Seen by Provider: 03/08/23 22:12 Source: patient and RN notes reviewed Mode of arrival: ambulatory Limitations: no limitations History of Present Illness HPI narrative: Patient is here with left-sided abdominal cramping and pain after passing a bowel movement earlier today followed by some dark blood clots. This is reminiscent of her prior episode of colitis that she has had about 2 years ago. She states that was ulcerative colitis. She does not remember being put on any medications, no steroids. She has current history complicated by the fact that she just had a laparoscopic cholecystectomy on 02/26 here at [facility]. She had a hypokalemia at the time with EKG changes, normal echo. She states she has been off pain medicines for days now, it took the oxycodone initially but when that was done, did not take anything else. She has not been taking any chronic NSAIDs. No current antibiotics. She does not have a history of C difficile colitis that she is aware of. No fever but she is feeling sweaty at times but thinks it is coming with the waves of pain. Was able to eat today. Has had a little nausea. She believes she is up-to-date on her colonoscopy. Related Data Home Medications Medication Instructions Recorded Confirmed escitalopram oxalate 20 mg tablet 20 mg PO QDAY 05/24/22 03/08/23 octreotide,microspheres 20 mg 20 mg IM Q4W 05/24/22 03/08/23 intramuscular susp, extended release venlafaxine 150 mg tablet,extended 150 mg PO QAM 05/24/22 03/08/23 release 24 hr trazodone 100 mg tablet 200 mg PO QHS 02/01/23 03/08/23 bupropion HCl 300 mg 24 hr tablet, 300 mg PO QAM 02/25/23 03/08/23 extended release mirtazapine 30 mg tablet 30 mg PO QPM 02/25/23 03/08/23 lorazepam 1 mg tablet 1 mg PO 03/08/23 Previous Rx's Medication Instructions Recorded chlorthalidone 25 mg tablet 25 mg PO ONCE 90 days #90 tabs 02/12/23 Allergies Allergy/AdvReac Type Severity Reaction Status Date / Time No Known Drug Allergies Allergy Verified 03/08/23 23:32 Review of Systems Status of ROS: Reports: 6 or more systems reviewed and unremarkable except as noted in History and below PFSH [facility] Medical History (Updated 03/09/23 @ 00:25 by Yumiko Mckeon MD) Edema ?R60.9 - Edema, unspecified (ICD-10) History of blood transfusion (2010) ?Z92.89 - Personal history of other medical treatment (ICD-10) History of prolactinoma (2009) ?Z86.018 - Personal history of other benign neoplasm (ICD-10) History of traumatic injury of head (1990) ?Z87.828 - Personal history of other (healed) physical injury and trauma (ICD-10) Hx of abnormal cervical Pap smear ?Z87.42 - Personal history of other diseases of the female genital tract (ICD-10) Surgical History (Updated 03/05/23 @ 00:08 by Chico Kan) History of brain surgery (2009) ?Z98.890 - Other specified postprocedural states (ICD-10) History of bunionectomy (1997) ?Z98.890 - Other specified postprocedural states (ICD-10) History of carpal tunnel release of both wrists ?Z98.890 - Other specified postprocedural states (ICD-10) History of hysterectomy (06/02/16) ?Z90.710 - Acquired absence of both cervix and uterus (ICD-10) History of rectal surgery (06/02/16) ?Z98.890 - Other specified postprocedural states (ICD-10) History of tonsillectomy ?Z90.89 - Acquired absence of other organs (ICD-10) Hx of hemorrhoidectomy ?Z98.890 - Other specified postprocedural states (ICD-10) Family History Mother Alcohol dependence Tuberculosis Father Alzheimers disease Uncle Cancer Other Ankylosing spondylitis Social History (Updated 02/25/23 @ 16:59 by Parth Hernandez MD) Narrative: , 3 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, Home [employer] Nicotine dependence-vaporizer, ex-smoker Rarely consumes alcohol Occasionally uses cannabis Does not exercise, active lifestyle with kids Highest level of school completed/degree received: Bachelor's degree Smoking Status: Never smoker Second hand tobacco smoke exposure: Yes How often do you have a drink containing alcohol: never How often do you have six or more drinks on one occasion: Never AUDIT-C Alcohol total score: 0 Non-prescribed substance use details: marijuana once a week for anxiety and headaches, prescribed-smoking Caffeine: Yes (pop liter a day) service: No Exam Const: Vital Signs, click to edit/add: Vital Signs - 24 hr 03/08/23 19:41 Temperature 96.8 F L Pulse Rate [Pulse Oximeter] 103 H Respiratory Rate 20 Blood Pressure [Ri ght Upper Arm] 156/93 H Pulse Oximetry 98 Documenting provider has reviewed patient's vital signs: yes Common normals: oriented x3 and alert General appearance: cooperative, well kempt and well developed Other: Does seem to have a wave of pain when I am in there and seems to feel warm with that. Does seem uncomfortable when this comes but in between will look more comfortable. HENMT: Common normals: normocephalic, head/scalp atraumatic, hearing grossly normal bilaterally, external nose normal, moist oral mucous membranes and oropharynx normal Head and scalp: normocephalic and atraumatic Nose: external nose normal Eye: Common normals: PERRL, EOMs intact bilaterally, conjunctivae normal and no scleral icterus Conjunctiva: conjunctiva(e) normal Pupil: PERRL Neck & C-Spine: Common normals: full ROM, no lymphadenopathy, supple, no meningeal signs, no JVD and thyroid normal Thyroid: thyroid normal Resp: Common normals: normal respiratory effort, no retractions, no use of accessory muscles and clear to auscultation bilaterally Auscultation: clear to auscultation bilaterally Cardio: Common normals: no JVD, regular rate, regular rhythm, S1 normal heart sound, S2 normal heart sound, no gallops, no clicks and no murmurs Rate: regular rate Rhythm: regular rhythm Heart sounds: S1 normal and S2 normal GI: Common normals: Normal to inspection, nondistended, normoactive bowel sounds present, soft to palpation, no hepatosplenomegaly and no masses Palpation: soft and no hepatosplenomegaly Other: The 4 port sites from her cholecystectomy are looking good. There is some pinkish coloration but no erythema, no drainage. She has more tenderness over the left mid to lower abdomen but no rebound or guarding. Extremity: Common normals: no pedal edema Neuro: Common normals: oriented x3 and moves all extremities Sensorium/o rientation: alert Meningeal signs: no meningeal signs Speech: speech normal Gait (neuro): normal gait Psych: Appearance: well kempt Course Course Hospital Course: We will stab lotion IV, give patient some IV Toradol and Zofran to see if this alleviates her symptoms. Unfortunately, I do feel we need to proceed with a CT with IV contrast to see intra-abdominal pathology. This could be colitis, doubt diverticulitis, doubt urinary tract disease. We will establish baseline labs on her. Will also initiate some IV fluids for her. Reevaluation(s) Reevaluation #1: Patient is having ongoing pain. We did give her some oxycodone but it is only been about 20 minutes. She understands that that is likely not enough time frame for to work. She is quite uncomfortable, am going to give her 4 mg IV morphine. She would really like to try to return to home. I reviewed with her that that certainly is acceptable plan to try. I can send her with Zofran and oxycodone for pain management. She understands that I cannot tell her if it is going to be adequate or if she is going to need to return for further evaluation and management. I would not give her steroids at this time, do not have enough history on her to know that it is or isn't inflammatory bowel disease. Would seem suspicious to me that she would have a diagnosis of ulcerative colitis and not be on any medicines, never of taken anything for it. I think it is best to proceed with a conservative approach and have her seek re-evaluation if she has ongoing bleeding, worsening pain or other concerning symptoms. Note she has had no further rectal bleeding while here. Ten tablets of oxycodone and Zofran were dispensed from [facility]. Time: 00:17 Vital Signs Vital signs: Initial Vital Signs Temperature 96.8 F L 03/08/23 19:41 Temperature Source Temporal Artery Scan 03/08/23 19:41 Pulse Rate 103 H 03/08/23 19:41 Respiratory Rate 20 03/08/23 19:41 Blood Pressure 156/93 H 03/08/23 19:41 Blood Pressure Mean 114 H 03/08/23 19:41 Blood Pressure Position Sitting 03/08/23 19:41 Pulse Oximetry 98 03/08/23 19:41 Vital Signs Temperature 96.8 F L 03/08/23 19:41 Pulse Rate 103 H 03/08/23 19:41 Respiratory Rate 20 03/08/23 19:41 Blood Pressure 156/93 H 03/08/23 19:41 Pulse Oximetry 98 03/08/23 19:41 Temperature 96.8 F L 03/08/23 19:41 Pulse Rate 103 H 03/08/23 19:41 Respiratory Rate 20 03/08/23 19:41 Blood Pressure 156/93 H 03/08/23 19:41 Pulse Oximetry 98 03/08/23 19:41 Medical Decision Making Lab Data Lab results reviewed: Yes I reviewed the patient's lab results Labs: Lab Results 03/08/23 03/08/23 03/08/23 Range/Units 22:21 22:30 22:50 WBC 11.10 H (4.50-11.00) K/uL RBC 5.43 H (4.00-5.20) m/uL Hgb 14.3 (12.0-16.0) gm/dL Hct 44.2 (33.0-51.0) % MCV 81 (80-100) fL MCH 26 (26-34) pg MCHC 32 (32-36) gm/dL RDW Coeff of Susan 13.0 (11.5-15.5) % Plt Count 438 (140-440) K/uL Neut % (Auto) 69.2 (42.0-72.0) % Lymph % (Auto) 21.4 (20-44) % [place] % (Auto) 5.9 (0.0-11.0) % Eos % (Auto) 2.3 (0.0-7.0) % Baso % (Auto) 0.4 (0.0-3.0) % Neut # (Auto) 7.70 H (1.7-7.0) K/uL Lymph # (Auto) 2.40 (0.90-2.90) K/uL [place] # (Auto) 0.70 (0.00-0.90) K/UL Eos # (Auto) 0.30 (0.00-0.50) K/uL Baso # (Auto) 0.00 (0.00-0.30) K/uL Sodium 137 (135-149) mmol/L Potassium 3.3 L (3.6-5.1) mmol/L Chloride 94 L (96-114) mmol/L Carbon Dioxide 32 (20-32) mmol/L BUN 15 (5-24) mg/dL Creatinine 0.9 (0.5-1.5) mg/dL Estimated Creat Clear 81.63 Estimated GFR 80 ml/min Glucose 90 (60-115) mg/dL Lactate 1.1 (0.5-1.9) mmol/L Calcium 9.8 (8.4-10.6) mg/dL Total Bilirubin 0.3 (0.1-1.5) mg/dL Direct Bilirubin 0.1 (0.0-0.5) mg/dL AST 26 (12-35) U/L ALT 25 (4-35) U/L Alkaline Phosphatase 101 (40-150) U/L C-Reactive Protein 1.0 (0.5-1.0) mg/dL Total Protein 8.1 (6.0-8.3) g/dL Albumin 5.0 (3.3-5.0) g/dL Urine Color Yellow (Yellow) Urine Appearance Cloudy A (Clear) Urine pH 5.0 (5.0-8.5) Ur Specific [place] 1.025 (1.000-1.030) Urine Protein Negative (Negative) Urine Glucose (UA) Negative (Negative) Urine Ketones Negative (Negative) Urine Blood Trace-intact A (Negative) Urine Nitrite Negative (Negative) Urine Bilirubin Negative (Negative) Urine Urobilinogen 0.2 (0.2-1.0) Ur Leukocyte Esterase Negative (Negative) Urine RBC 0-2 (0-2) Urine WBC 0-2 (0-5) Ur Squamous Epith Cells Moderate A (None-Few) Urine Bacteria Moderate A (None) Imaging Data CT scan - abdomen: Attestation: I have reviewed the pertinent imaging results. Radiologist's impression: Patient: MODESTA OVALLE Facility:?[facility] Patient ID:?[id number] Site Patient ID:?[id number]. Site :?[id number] Study:?CT Abdomen/Pelvis w/ 93cc [id number] 11:38:13 PM Ordering Physician:Mckay Calderon Final Report: INDICATION: Left abdominal pain, hematochezia, recent cholecystectomy, history colitis TECHNIQUE: CT Abdomen and pelvis with i.v. contrast. Coronal and sagittal reformats were obtained. CONTRAST: 93 mL Isovue 370 COMPARISON: 08/14/2021 FINDINGS: Lower chest: Unremarkable. Liver: Unremarkable. Spleen: Unremarkable. Pancreas: Unremarkable. Gallbladder: Previous cholecystectomy noted with no significant intra- or extrahepatic biliary ductal dilatation seen. Kidney: Unremarkable. No kidney or ureteral stones or obstruction seen. Adrenal: Unremarkable. Bowel: Small sliding type gastric hiatal hernia (type IV) is present. Moderate wall thickening is seen in the distal descending colon and sigmoid colon. The appendix is normal in appearance and size. Vascular: Unremarkable. Lymph: Unremarkable. Peritoneum: Unremarkable. No pneumoperitoneum is seen. No significant ascites is noted. Pelvis: The patient is status post hysterectomy. Soft tissue: Unremarkable. Bone: Unremarkable for age. IMPRESSION: 1. Moderate wall thickening is seen in the distal descending colon and sigmoid colon. This may be due to infectious colitis or inflammatory bowel disease. I schemic colitis can also be considered in the appropriate clinical context. Dictated by Silvestre Garzon MD @ 03/08/2023 11:40:26 PM Please note that all CT scans at this facility use dose modulation, iterative reconstruction, and/or weight-based dosing when appropriate to reduce radiation dose to as low as reasonably achievable. Dictated by: Silvestre Garzon MD @ 03/08/2023 23:40:42 (Electronic Signature) Discharge Plan Discharge Clinical Impression: Colitis Patient Disposition: Home, Self-Care Condition: Stable Instructions: Colitis (ED) Additional Instructions: Use Tylenol 1000 mg 3 times a day baseline for pain. Can supplement with the oxycodone per prescription for more severe pain. If you are having further blood in stools, increasing abdominal pain, develops fever, do need to seek re- evaluation. For diet, attempt to stick with clears until you are feeling better. Do recommend recheck in clinic this week if you can get an appointment. Certainly if there are concerns or worsening, do recommend returning to the ER for further evaluation and management. Activity Level: Activity as Tolerated Prescriptions: No Action venlafaxine 150 mg tablet extended release 24 hr 150 mg PO QAM escitalopram oxalate 20 mg tablet 20 mg PO QDAY octreotide,microspheres 20 mg suspension,extended rel recon 20 mg IM Q4W trazodone 100 mg tablet 200 mg PO QHS chlorthalidone 25 mg tablet 25 mg PO ONCE 90 Days Qty: 90 3RF mirtazapine 30 mg tablet 30 mg PO QPM bupropion HCl 300 mg tablet extended release 24 hr 300 mg PO QAM lorazepam 1 mg tablet 1 mg PO Follow Up/Referrals: Quynh San APRN, [employer] [Primary Care Provider] - Stand Alone Forms: [facility] Info Instructions
--- NOTE | 2023-03-08 22:22 | CRLHL7_ITS ---
For Patients: As a result of the Cures Act, medical imaging exams and procedure reports are released immediately into your electronic medical record. You may view this report before your referring provider. If you have questions, please contact your health care provider. INDICATION: Left abdominal pain, hematochezia, recent cholecystectomy, history colitis TECHNIQUE: CT Abdomen and pelvis with i.v. contrast. Coronal and sagittal reformats were obtained. CONTRAST: 93 mL Isovue 370 COMPARISON: 08/14/2021 FINDINGS: Lower chest: Unremarkable. Liver: Unremarkable. Spleen: Unremarkable. Pancreas: Unremarkable. Gallbladder: Previous cholecystectomy noted with no significant intra- or extrahepatic biliary ductal dilatation seen. Kidney: Unremarkable. No kidney or ureteral stones or obstruction seen. Adrenal: Unremarkable. Bowel: Small sliding type gastric hiatal hernia (type IV) is present. Moderate wall thickening is seen in the distal descending colon and sigmoid colon. The appendix is normal in appearance and size. Vascular: Unremarkable. Lymph: Unremarkable. Peritoneum: Unremarkable. No pneumoperitoneum is seen. No significant ascites is noted. Pelvis: The patient is status post hysterectomy. Soft tissue: Unremarkable. Bone: Unremarkable for age. IMPRESSION: 1. Moderate wall thickening is seen in the distal descending colon and sigmoid colon. This may be due to infectious colitis or inflammatory bowel disease. Ischemic colitis can also be considered in the appropriate clinical context. Dictated by Silvestre Garzon MD @ 03/08/2023 11:40:26 PM Please note that all CT scans at this facility use dose modulation, iterative reconstruction, and/or weight-based dosing when appropriate to reduce radiation dose to as low as reasonably achievable. Dictated by: Silvestre Garzon MD @ 03/08/2023 23:40:42 (Electronically Signed)
[2023-03-08 22:46] LABS: Appearance Urine Cloudy (Clear); Bilirubin Urine Negative (Negative); Blood Urine Trace-intact (Negative); Color Urine Yellow (Yellow); Glucose Urine Negative (Negative); Ketones Urine Negative (Negative); Leukocyte Esterase Urine Negative (Negative); Nitrite Urine Negative (Negative); Protein Urine Negative (Negative); Specific Gravity Urine 1.025 (1.000-1.030); Urobilinogen Urine 0.2 (0.2-1.0)
[2023-03-08 22:58] LABS: Basophils Percent Auto 0.4 % (0.0-3.0); Eosinophils Percent Auto 2.3 % (0.0-7.0); Hematocrit 44.2 % (33.0-51.0); Hemoglobin* 14.3 gm/dL (12.0-16.0); Immature Granulocytes Pct Auto 0.8 %; Lymphocytes Percent Auto 21.4 % (20-44); Mean Corpuscular HGB Conc 32 gm/dL (32-36); Mean Corpuscular Hemoglobin 26 pg (26-34); Mean Corpuscular Volume 81 fL (80-100); Monocytes Percent Auto 5.9 % (0.0-11.0); Neutrophils Percent Auto 69.2 % (42.0-72.0); Platelet Count* 438 K/uL (140-440); Red Blood Count 5.43 m/uL (4.00-5.20)
[2023-03-08 23:01] LABS: Bacteria Urine Moderate; RBC Urine 0-2 (0-2); Squamous Epithelial Cell Urine Moderate (None-Few); WBC Urine 0-2 (0-5)
[2023-03-08 23:04] LABS: Lactate* 1.1 mmol/L (0.5-1.9)
[2023-03-08 23:05] LABS: Slide Review Reflex No
[2023-03-08 23:12] LABS: Chloride* 94 mmol/L (96-114)
[2023-03-08 23:13] LABS: Potassium* 3.3 mmol/L (3.6-5.1); Sodium* 137 mmol/L (135-149)
[2023-03-08 23:15] LABS: Creatinine* 0.9 mg/dL (0.5-1.5); Est. Creatinine Clearance* 81.63; Estimated Glomerular Filt Rate 80 ml/min
[2023-03-08 23:16] LABS: Alanine Aminotransferase* 25 U/L (4-35); Alkaline Phosphatase* 101 U/L (40-150); Aspartate Amino Transferase* 26 U/L (12-35); Bilirubin Direct* 0.1 mg/dL (0.0-0.5); Bilirubin Total* 0.3 mg/dL (0.1-1.5); Blood Urea Nitrogen* 15 mg/dL (5-24); Calcium* 9.8 mg/dL (8.4-10.6); Carbon Dioxide* 32 mmol/L (20-32); Glucose* 90 mg/dL (60-115); Total Protein* 8.1 g/dL (6.0-8.3)
[2023-03-08] MEDS: ONDANSETRON 2 MG/ML inj 4 MG IVP (23:32)
[2023-03-08] MEDS: 0.9 % SODIUM CHLORIDE 1000 ml 1,000 ML 500 ML IV (23:32)
[2023-03-08] MEDS: KETOROLAC 15 MG/ML inj IVP (23:33)
[2023-03-09] MEDS: OXYCODONE 5 MG TABLET PO
[2023-03-09] MEDS: MORPHINE 4 MG/ML INJ IVP (00:22)
== END 2023-03-09 00:35 | disposition home or self-care (01) ==
PROVIDERS: Emergency Provider Family Medicine; PCP Nurse Practitioner Family
DX: K52.9 Noninfective gastroenteritis and colitis, unspecified (principal)
CPT/HCPCS: 36415; 74177; 80053; 81001; 82248; 83605; 85025; 86140; 87086; 94761; 96374; 96375; 99284; 99285; A9270; J1885; J2270; J2405; J7030; Q9967

== ENCOUNTER 2023-04-12 13:03 | Observation (INO) | payer BC, SELFPAY ==
[2023-04-12 13:24] VITALS: BP 118/74; PULSE 93; RESP 16; TEMP 36.1; O2SAT 97; BMI 26.6
--- NOTE | 2023-04-12 15:34 | ED.WEAKNESS ---
HPI - Weakness General Time Seen by Provider: 15:34 Date Seen: 04/12/23 Chief complaint: Weakness Stated complaint: Feeling faint Time Seen by Provider: 04/12/23 15:34 Source: patient, RN notes reviewed and old records reviewed Mode of arrival: ambulatory Limitations: no limitations History of Present Illness HPI Narrative: Teresita is a very pleasant 47-year-old female who is approximately 1 month status post cholecystectomy, has a history of ulcerative colitis who comes to the emergency room for evaluation regarding inability to eat, possible hydration and abdominal pain. Patient notes that since Wednesday or for 6 days she has been experiencing nausea especially with attempts at eating. She states that she really has not had a lot to eat or drink except for 7 up for the past few days. She describes her stomach pain as having a sour stomach. She is experiencing nonbloody diarrhea but states that that was actually present for quite some time. She denies a fever but has been experiencing chills and sweats. She has not had any recent travel nor been exposed to any recent illnesses. She does note that she has a cough but it is not severe. She denies any urinary symptoms. She states she has actually had some weight gain recently. In regards to her ulcerative colitis she does not take any routine medications. In regards to her belly pain is rather diffuse she has not taken any medications. She also notes that she seems to have a headache and shows this to be the frontal area. She states that seems to be behind her eyes and she thinks this is from dehydration. She notes that it is even somewhat challenging to look at of computer screen for very long. 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 She initially had that removed but part of it grew back and since that time she has been on monthly injections of Sandostatin. She recently went from having that every 28 days to every 6 weeks and her last shot was on WednesdayApril 07. She has been doing this for the past couple of years. Related Data Home Medications Medication Instructions Recorded Confirmed escitalopram oxalate 20 mg tablet 20 mg PO QDAY 05/24/22 03/17/23 octreotide,microspheres 20 mg 20 mg IM Q4W 05/24/22 03/17/23 intramuscular susp, extended release venlafaxine 150 mg tablet,extended 150 mg PO QAM 05/24/22 03/17/23 release 24 hr trazodone 100 mg tablet 200 mg PO QHS 02/01/23 03/17/23 bupropion HCl 300 mg 24 hr tablet, 300 mg PO QAM 02/25/23 03/17/23 extended release mirtazapine 30 mg tablet 30 mg PO QPM 02/25/23 03/17/23 lorazepam 1 mg tablet 1 mg PO 03/08/23 03/17/23 Previous Rx's Medication Instructions Recorded chlorthalidone 25 mg tablet 25 mg PO ONCE 90 days #90 tabs 02/12/23 Allergies Allergy/AdvReac Type Severity Reaction Status Date / Time No Known Drug Allergies Allergy Verified 03/17/23 13:35 Review of Systems Status of ROS: Reports: 10 or more systems reviewed and unremarkable except as noted in History and below Narrative: Patient denies recent travel, calf tenderness or history of DVT. Const: Reports: chills, change in weight and fatigue; Denies: fever Eyes: Denies: change in vision ENMT: Denies: throat pain, neck pain or difficulty swallowing Cardio: Denies: chest pain or shortness of breath with exertion Resp: Reports: cough; Denies: shortness of breath or wheezing GI: Reports: abdominal pain, nausea and diarrhea; Denies: vomiting, constipation, difficulty swallowing or blood in stool : Denies: painful urination or urinary frequency Musculo: Reports: back pain (Upper back pain on the left.); Denies: neck pain Integ/Breast: Denies: rash Neuro: Reports: headache; Denies: numbness in extremities or weakness in extremities Endo: Reports: fatigue; Denies: excessive urination Allergy/Immuno: Denies: wheezing [facility] Medical History Edema ?R60.9 - Edema, unspecified (ICD-10) Hx of abnormal cervical Pap smear ?Z87.42 - Personal history of other diseases of the female genital tract (ICD-10) History of traumatic injury of head (1990) ?Z87.828 - Personal history of other (healed) physical injury and trauma (ICD-10) History of prolactinoma (2009) ?Z86.018 - Personal history of other benign neoplasm (ICD-10) History of blood transfusion (2010) ?Z92.89 - Personal history of other medical treatment (ICD-10) Surgical History Hx of hemorrhoidectomy ?Z98.890 - Other specified postprocedural states (ICD-10) History of tonsillectomy ?Z90.89 - Acquired absence of other organs (ICD-10) History of rectal surgery (06/02/16) ?Z98.890 - Other specified postprocedural states (ICD-10) History of hysterectomy (06/02/16) ?Z90.710 - Acquired absence of both cervix and uterus (ICD-10) History of carpal tunnel release of both wrists ?Z98.890 - Other specified postprocedural states (ICD-10) History of bunionectomy (1997) ?Z98.890 - Other specified postprocedural states (ICD-10) History of brain surgery (2009) ?Z98.890 - Other specified postprocedural states (ICD-10) Family History Mother Alcohol dependence Tuberculosis Father Alzheimers disease Uncle Cancer Other Ankylosing spondylitis Social History Narrative: , 3 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, [employer] Nicotine dependence-vaporizer, ex-smoker Rarely consumes alcohol Occasionally uses cannabis Does not exercise, active lifestyle with kids Highest level of school completed/degree received: Bachelor's degree Smoking Status: Current some day smoker Do you use any of these nicotine containing products: Vaping Products Second hand tobacco smoke exposure: Yes How often do you have a drink containing alcohol: never How often do you have six or more drinks on one occasion: Never AUDIT-C Alcohol total score: 0 Non-prescribed substance use: denies use Non-prescribed substance use details: marijuana once a week for anxiety and headaches, prescribed-smoking Caffeine: Yes (pop liter a day) service: No Exam Narrative: Exam Narrative: Alert and oriented. No acute distress. EOM is full. Face is symmetrical. Lips are dry. Heart with a regular rate and rhythm. Lungs are clear bilaterally. Abdomen is soft but there is diffuse tenderness. No rebound tenderness is noted. Lower extremities with scant peripheral edema. No calf tenderness and negative Homans sign. Const: Vital Signs, click to edit/add: Vital Signs - 24 hr 04/12/23 13:24 04/12/23 16:53 Temperature 97 F L Pulse Rate [Pulse Oximeter] 93 96 Respiratory Rate 16 18 Blood Pressure [Ri ght Upper Arm] 118/74 135/88 Pulse Oximetry 97 98 Oxygen Delivery Me thod Room Air Documenting provider has reviewed patient's vital signs: yes Course Course Hospital Course: Differential diagnosis includes viral syndrome, ulcerative colitis flare, postoperative complication, C diff infection, electrolyte abnormality, dehydration. Will place IV and give 1 L of normal saline. Labs to include CBC, comprehensive, CRP, urinalysis, C diff. Reevaluation(s) Reevaluation #1: Patient noted to have hypokalemia with a potassium of 2.7. She was unable to take oral replacement even after Zofran. Therefore, have ordered 10 mEq riders. Patient did have discomfort and in spite of slowing it down the potassium continue to do so. Therefore ordered subsequent rider with lidocaine. Patient complaining of a headache. Neurologically intact at this time. White count is normal. Will try some Toradol 15 mg IV x1. Reevaluation #2: Patient did not feel that the Toradol has helped therefore will give her Reglan 10 mg IV. Do note that Zofran had not been given and thus have reordered at this time. Vital Signs Vital signs: Initial Vital Signs Temperature 97 F L 04/12/23 13:24 Temperature Source Temporal Artery Scan 04/12/23 13:24 Pulse Rate 93 04/12/23 13:24 Respiratory Rate 16 04/12/23 13:24 Blood Pressure 118/74 04/12/23 13:24 Blood Pressure Mean 88 04/12/23 13:24 Pulse Oximetry 97 04/12/23 13:24 Vital Signs Temperature 97 F L 04/12/23 13:24 Pulse Rate 93 04/12/23 13:24 Respiratory Rate 16 04/12/23 13:24 Blood Pressure 118/74 04/12/23 13:24 Pulse Oximetry 97 04/12/23 13:24 Temperature 97 F L 04/12/23 13:24 Pulse Rate 96 04/12/23 16:53 Respiratory Rate 18 04/12/23 16:53 Blood Pressure 135/88 04/12/23 16:53 Pulse Oximetry 98 04/12/23 16:53 Oxygen Delivery Method Room Air 04/12/23 16:53 MDM - Weakness MDM Narrative Medical decision making narrative: 1. Hypokalemia-2.7. Inability to take p.o. and thus giving 10 mEq riders. Likely ongoing lost through loose stools since gallbladder was taken out. Complicated by either ulcerative colitis flare or overlying viral illness. Magnesium at this time is pending as it is a send out. 2. Ulcerative colitis-does appear to be some mild colitis on the CT. This is perhaps implicated in help patient is feeling. No evidence of blood in stool per patient. Given recent hospitalization I do have a C diff pending. 3. Headache-patient does have history of prolactinoma. However this is status post resection. A initial thoughts were headache was likely secondary to dehydration. Have given 2 L of fluid at this point. Headache is ongoing without any significant neurological findings. Reglan 10 mg IV piggyback is ordered. 4. Urinary pyuria-no evidence of leukocyte esterase or nitrates but there is wbc's present. I believe this is likely secondary from ulcerative colitis flare but will had this urine cultured. 5. Disposition-admit under the care of for IV fluids, potassium and further evaluation. Medical Records Attestation: I reviewed the patient's medical records. Lab Data Attestation: I reviewed the patient's lab results. Labs: Lab Results 04/12/23 04/12/23 04/12/23 Range/Units 16:24 16:50 17:00 WBC 9.27 (4.50-11.00) K/uL RBC 5.91 H (4.00-5.20) m/uL Hgb 15.5 (12.0-16.0) gm/dL Hct 47.3 (33.0-51.0) % MCV 80 (80-100) fL MCH 26 (26-34) pg MCHC 33 (32-36) gm/dL RDW Coeff of Susan 13.6 (11.5-15.5) % Plt Count 481 H (140-440) K/uL Neut % (Auto) 64.7 (42.0-72.0) % Lymph % (Auto) 27.3 (20-44) % [place] % (Auto) 6.5 (0.0-11.0) % Eos % (Auto) 0.9 (0.0-7.0) % Baso % (Auto) 0.3 (0.0-3.0) % Neut # (Auto) 6.00 (1.7-7.0) K/uL Lymph # (Auto) 2.53 (0.90-2.90) K/uL [place] # (Auto) 0.60 (0.00-0.90) K/UL Eos # (Auto) 0.08 (0.00-0.50) K/uL Baso # (Auto) 0.03 (0.00-0.30) K/uL Sodium 134 L (135-149) mmol/L Potassium 2.7 L* (3.6-5.1) mmol/L Chloride 88 L (96-114) mmol/L Carbon Dioxide 37 H (20-32) mmol/L BUN 13 (5-24) mg/dL Creatinine 1.1 (0.5-1.5) mg/dL Estimated Creat Clear 66.79 Estimated GFR 63 ml/min Glucose 109 (60-115) mg/dL Calcium 9.2 (8.4-10.6) mg/dL Total Bilirubin 0.7 (0.1-1.5) mg/dL AST 26 (12-35) U/L ALT 24 (4-35) U/L Alkaline Phosphatase 105 (40-150) U/L C-Reactive Protein 0.8 (0.5-1.0) mg/dL Total Protein 8.3 (6.0-8.3) g/dL Albumin 4.8 (3.3-5.0) g/dL Lipase 111 (23-300) U/L Urine Color Yellow (Yellow) Urine Appearance Clear (Clear) Urine pH 6.0 (5.0-8.5) Ur Specific [place] 1.020 (1.000-1.030) Urine Protein Negative (Negative) Urine Glucose (UA) Negative (Negative) Urine Ketones Negative (Negative) Urine Blood Negative (Negative) Urine Nitrite Negative (Negative) Urine Bilirubin 1+ A (Negative) Urine Urobilinogen 1.0 (0.2-1.0) Ur Leukocyte Esterase Negative (Negative) Urine RBC 0-2 (0-2) Urine WBC 5-10 A (0-5) Ur Squamous Epith Cells Many A (None-Few) Urine Bacteria Few A (None) SARS-CoV-2 (PCR) Negative SARS-CoV-2 (Negative) Lab Acknowledgement Test Added Imaging Data Chest x-ray: Attestation: I have reviewed the pertinent imaging results. Radiologist's impression: Cardiovascular and mediastinum: Heart size and vasculature are normal in caliber and appearance.? Mediastinum is within normal limits.? Lungs and pleural space: Lungs are clear.? No sign of infiltrate or mass.? No sign of pleural effusion.? No pneumothorax.? Bones and soft tissues: No significant findings.? IMPRESSION: Unremarkable chest. CT scan - abdomen: Attestation: I have reviewed the pertinent imaging results. Radiologist's impression: The liver, spleen, pancreas, and adrenal glands are negative. Cholecystectomy. No biliary dilation. Hepatic and portal veins are patent. Symmetric enhancement of the kidneys. Partial duplication of the right renal collecting system. No hydronephrosis or ureteral dilation. No obstructing urinary calculi identified. Mild bladder wall thickening likely due to underdistention. Hysterectomy. Small follicle right ovary. There is a 1.2 cm cystic lesion in the left ovary with thick enhancing wall (series 2, image 127). This likely represents a corpus luteal cyst. Small to moderate hiatal hernia. No small bowel dilation. Fluid throughout the colon which can be seen with diarrhea. There is questionable mucosal hyperenhancement throughout the ascending colon without significant wall thickening or pericolonic inflammation. Mild residual wall thickening of the proximal sigmoid colon which is improved compared to prior exam. Resolution of previously seen wall thickening in the descending colon. Negative appendix. No intraperitoneal free air or fluid. Small fat containing umbilical and supraumbilical ventral hernias. No lymphadenopathy. The bones are unremarkable. The lung bases are clear. IMPRESSION: 1. Questionable mucosal hyperenhancement throughout the ascending colon without significant wall thickening or pericolonic inflammation. Findings could represent a mild nonspecific colitis. 2. Mild residual wall thickening in the proximal sigmoid colon, improved compared to prior exam. 3. Probable corpus luteal cyst in the left ovary. Discharge Plan Discharge Prescriptions: No Action venlafaxine 150 mg tablet extended release 24 hr 150 mg PO QAM escitalopram oxalate 20 mg tablet 20 mg PO QDAY octreotide,microspheres 20 mg suspension,extended rel recon 20 mg IM Q4W trazodone 100 mg tablet 200 mg PO QHS chlorthalidone 25 mg tablet 25 mg PO ONCE 90 Days Qty: 90 3RF mirtazapine 30 mg tablet 30 mg PO QPM bupropion HCl 300 mg tablet extended release 24 hr 300 mg PO QAM lorazepam 1 mg tablet 1 mg PO Follow Up/Referrals: Quynh San, [employer], [employer] [Primary Care Provider] -
--- NOTE | 2023-04-12 16:05 | CRLHL7_ITS ---
For Patients: As a result of the Century Cures Act, medical imaging exams and procedure reports are released immediately into your electronic medical record. You may view this report before your referring provider. If you have questions, please contact your health care provider. INDICATION: History of ulcerative colitis, abdominal pain, faint feeling, weakness, cramping. TECHNIQUE: CT of the abdomen and pelvis with 89 cc Isovue 370 IV contrast. Coronal and sagittal reconstructions. COMPARISON: CT of the abdomen and pelvis 03/08/2023. FINDINGS: The liver, spleen, pancreas, and adrenal glands are negative. Cholecystectomy. No biliary dilation. Hepatic and portal veins are patent. Symmetric enhancement of the kidneys. Partial duplication of the right renal collecting system. No hydronephrosis or ureteral dilation. No obstructing urinary calculi identified. Mild bladder wall thickening likely due to underdistention. Hysterectomy. Small follicle right ovary. There is a 1.2 cm cystic lesion in the left ovary with thick enhancing wall (series 2, image 127). This likely represents a corpus luteal cyst. Small to moderate hiatal hernia. No small bowel dilation. Fluid throughout the colon which can be seen with diarrhea. There is questionable mucosal hyperenhancement throughout the ascending colon without significant wall thickening or pericolonic inflammation. Mild residual wall thickening of the proximal sigmoid colon which is improved compared to prior exam. Resolution of previously seen wall thickening in the descending colon. Negative appendix. No intraperitoneal free air or fluid. Small fat containing umbilical and supraumbilical ventral hernias. No lymphadenopathy. The bones are unremarkable. The lung bases are clear. IMPRESSION: 1. Questionable mucosal hyperenhancement throughout the ascending colon without significant wall thickening or pericolonic inflammation. Findings could represent a mild nonspecific colitis. 2. Mild residual wall thickening in the proximal sigmoid colon, improved compared to prior exam. 3. Probable corpus luteal cyst in the left ovary. Please note that all CT scans at this facility use dose modulation, iterative reconstruction, and/or weight-based dosing when appropriate to reduce radiation dose to as low as reasonably achievable. Dictated by Eli Cook MD @ 04/12/2023 6:08:44 PM (Electronically Signed)
--- NOTE | 2023-04-12 16:08 | CRLHL7_ITS ---
For Patients: As a result of the Century Cures Act, medical imaging exams and procedure reports are released immediately into your electronic medical record. You may view this report before your referring provider. If you have questions, please contact your health care provider. INDICATION: Cough TECHNIQUE: Chest 1 view. COMPARISON: 03/05/23 FINDINGS: Cardiovascular and mediastinum: Heart size and vasculature are normal in caliber and appearance. Mediastinum is within normal limits. Lungs and pleural space: Lungs are clear. No sign of infiltrate or mass. No sign of pleural effusion. No pneumothorax. Bones and soft tissues: No significant findings. IMPRESSION: Unremarkable chest. Dictated by: Jeremías Zamudio MD @ 04/12/2023 16:53:04 (Electronically Signed)
--- NOTE | 2023-04-12 16:28 | ED.NURSE ---
[employer]OLOGIST swabbed
[2023-04-12 16:42] LABS: Basophils Absolute Auto 0.03 K/uL (0.00-0.30); Basophils Percent Auto 0.3 % (0.0-3.0); Eosinophils Absolute Auto 0.08 K/uL (0.00-0.50); Eosinophils Percent Auto 0.9 % (0.0-7.0); Hematocrit 47.3 % (33.0-51.0); Hemoglobin* 15.5 gm/dL (12.0-16.0); Immature Granulocytes Abs Auto 0.03 K/uL (0.00-0.30); Immature Granulocytes Pct Auto 0.3 %; Lymphocytes Absolute Auto 2.53 K/uL (0.90-2.90); Lymphocytes Percent Auto 27.3 % (20-44); Mean Corpuscular HGB Conc 33 gm/dL (32-36); Mean Corpuscular Hemoglobin 26 pg (26-34); Mean Corpuscular Volume 80 fL (80-100); Monocytes Percent Auto 6.5 % (0.0-11.0); Neutrophils Percent Auto 64.7 % (42.0-72.0); Platelet Count* 481 K/uL (140-440); RDW Coefficient of Variation % 13.6 % (11.5-15.5); Red Blood Count 5.91 m/uL (4.00-5.20); White Blood Count* 9.27 K/uL (4.50-11.00)
[2023-04-12] MEDS: 0.9 % SODIUM CHLORIDE 1000 ml 1,000 ML IV ×2 (16:50→18:16)
[2023-04-12 16:52] LABS: Albumin* 4.8 g/dL (3.3-5.0); Chloride* 88 mmol/L (96-114)
[2023-04-12 16:53] VITALS: BP 135/88; PULSE 96; RESP 18; O2SAT 98
[2023-04-12 16:53] LABS: Sodium* 134 mmol/L (135-149)
[2023-04-12 16:55] LABS: Creatinine* 1.1 mg/dL (0.5-1.5); Est. Creatinine Clearance* 66.79; Estimated Glomerular Filt Rate 63 ml/min
[2023-04-12 16:56] LABS: Alanine Aminotransferase* 24 U/L (4-35); Alkaline Phosphatase* 105 U/L (40-150); Aspartate Amino Transferase* 26 U/L (12-35); Bilirubin Total* 0.7 mg/dL (0.1-1.5); Blood Urea Nitrogen* 13 mg/dL (5-24); Calcium* 9.2 mg/dL (8.4-10.6); Carbon Dioxide* 37 mmol/L (20-32); Glucose* 109 mg/dL (60-115); Lipase* 111 U/L (23-300); Total Protein* 8.3 g/dL (6.0-8.3)
[2023-04-12 16:57] LABS: Potassium* 2.7 mmol/L (3.6-5.1)
[2023-04-12 16:58] LABS: C Reactive Protein* 0.8 mg/dL (0.5-1.0); Slide Review Reflex No
[2023-04-12 17:06] LABS: Appearance Urine Clear (Clear); Bilirubin Urine 1+ (Negative); Blood Urine Negative (Negative); Color Urine Yellow (Yellow); Glucose Urine Negative (Negative); Ketones Urine Negative (Negative); Leukocyte Esterase Urine Negative (Negative); Nitrite Urine Negative (Negative); Protein Urine Negative (Negative)
[2023-04-12] MEDS: POTASSIUM CHLORIDE 10 MEQ/100 ML PIGGYBACK 100 MEQ IVPB ×3 (17:24→23:30)
[2023-04-12 17:35] LABS: Bacteria Urine Few; RBC Urine 0-2 (0-2); Squamous Epithelial Cell Urine Many (None-Few)
[2023-04-12 17:36] LABS: SARS PCR* Negative SARS-CoV-2 (Negative)
--- NOTE | 2023-04-12 18:28 | ED.NURSE ---
pt crying due to pain in R arm from potassium infusion. first bump complete. also c/o headache.
[2023-04-12] MEDS: KETOROLAC 15 MG/ML inj IVP (18:37)
[2023-04-12] MEDS: POTASSIUM CHLORIDE 10 MEQ, LIDOCAINE 1 % 1 ML in 0.9 % SODIUM CHLORIDE 100 ml 100 ML 106 MEQ IVPB (19:31)
[2023-04-12] MEDS: ONDANSETRON 2 MG/ML inj 4 MG IVP (20:27)
[2023-04-12 20:57] LABS: Magnesium* 2.2 mg/dL (1.5-2.6)
[2023-04-12 21:19] VITALS: BP 125/77; PULSE 85; RESP 18; TEMP 36.9; O2SAT 97; BMI 28.5
--- NOTE | 2023-04-12 22:31 | PM.IMHP1 ---
Hospitalist- H&P: HPI History of Present Illness Date Seen: 04/12/23 Chief complaint: Feeling faint Narrative: Teresita Orellana is a 47 year old female with past medical history depression, anxiety, Ulcerative colitis, prolonged QTc,prolactinoma, recnet hx of cholecystectomy on 02/26 presenting for evaluation of generalized weakness. The patient endorses diarrhea and decreased appetite. Endorses nausea, headache, Denies chest pain. Has intermittent SOB. She presented to ED where cxr showed no acute findings. CT AP showed Questionable mucosal hyperenhancement throughout the ascending colon without significant wall thickening or pericolonic inflammation. Findings could represent a mild nonspecific colitis. Notable labs included normal WBC potassium 2.7. She was unable to tolerate PO potassium. She was started on IV potassium and admitted for further evaluation cxr Unremarkable chest. ct ap 1. Questionable mucosal hyperenhancement throughout the ascending colon without significant wall thickening or pericolonic inflammation. Findings could represent a mild nonspecific colitis. 2. Mild residual wall thickening in the proximal sigmoid colon, improved compared to prior exam. 3. Probable corpus luteal cyst in the left ovary. Review of Systems Status of ROS: Reports: 10 or more systems reviewed and unremarkable except as noted in History and below [facility] Medical History Edema ?R60.9 - Edema, unspecified (ICD-10) Hx of abnormal cervical Pap smear ?Z87.42 - Personal history of other diseases of the female genital tract (ICD-10) History of traumatic injury of head (1990) ?Z87.828 - Personal history of other (healed) physical injury and trauma (ICD-10) History of prolactinoma (2009) ?Z86.018 - Personal history of other benign neoplasm (ICD-10) History of blood transfusion (2010) ?Z92.89 - Personal history of other medical treatment (ICD-10) Surgical History Hx of hemorrhoidectomy ?Z98.890 - Other specified postprocedural states (ICD-10) History of tonsillectomy ?Z90.89 - Acquired absence of other organs (ICD-10) History of rectal surgery (06/02/16) ?Z98.890 - Other specified postprocedural states (ICD-10) History of hysterectomy (06/02/16) ?Z90.710 - Acquired absence of both cervix and uterus (ICD-10) History of carpal tunnel release of both wrists ?Z98.890 - Other specified postprocedural states (ICD-10) History of bunionectomy (1997) ?Z98.890 - Other specified postprocedural states (ICD-10) History of brain surgery (2009) ?Z98.890 - Other specified postprocedural states (ICD-10) Family History Mother Alcohol dependence Tuberculosis Father Alzheimers disease Uncle Cancer Other Ankylosing spondylitis Social History Narrative: , 3 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, Health Insurance [employer]ist family [employer] Nicotine dependence-vaporizer, ex-smoker Rarely consumes alcohol Occasionally uses cannabis Does not exercise, active lifestyle with kids What is your current living situation: I presently have a place to live Problems where you live: no known problems Problems where you live details: n/a In the past 12 months, utilities in danger of being shut off: no In the past 12 mos, have been you worried that your food would run out before you had money to buy more?: never true In the past 12 mos, the food you bought just didn't last and you didn't have money to buy more?: never true Highest level of school completed/degree received: Bachelor's degree Smoking Status: Former smoker What tobacco products do you use: cigarettes Smoking quit date/years: <= 15 years ago Do you use any of these nicotine containing products: Vaping Products Second hand tobacco smoke exposure: No How often do you have a drink containing alcohol: never How often do you have six or more drinks on one occasion: Never AUDIT-C Alcohol total score: 0 Non-prescribed substance use: marijuana (any form) Non-prescribed substance use details: marijuana once a week for anxiety and headaches, prescribed-smoking Caffeine: Yes How often does anyone, including family, friends and others, physically hurt you: How often does anyone, including family, friends and others, insult or talk down to you: How often does anyone, including family, friends and others, threaten you with harm: How often does anyone, including family, friends and others, scream or curse at you: service: No Meds Home Medications and Allergies Home Medications Medication Instructions Recorded Confirmed Type escitalopram oxalate 20 mg tablet 20 mg PO QDAY 05/24/22 03/17/23 History octreotide,microspheres 20 mg 20 mg IM Q4W 05/24/22 03/17/23 History intramuscular susp, extended release venlafaxine 150 mg tablet,extended 150 mg PO QAM 05/24/22 03/17/23 History release 24 hr trazodone 100 mg tablet 200 mg PO QHS 02/01/23 03/17/23 History bupropion HCl 300 mg 24 hr tablet, 300 mg PO QAM 02/25/23 03/17/23 History extended release mirtazapine 30 mg tablet 30 mg PO QPM 02/25/23 03/17/23 History lorazepam 1 mg tablet 1 mg PO 03/08/23 03/17/23 History Allergies Allergy/AdvReac Type Severity Reaction Status Date / Time No Known Drug Allergies Allergy Verified 03/17/23 13:35 Exam Narrative: Exam Narrative: Gen: no acute distress HEENT: NCAT EOMI mmm Neck: Supple CV: RRR normal s1 s2 Lungs: CTAB Abd: Soft,nt, nd Neuro: Alert, oriented, CN grossly intact; nonfocal screening?exam Psych: appropriate affect MSK: age appropriate muscle mass Skin; Warm, dry no rash on face Const: Vital Signs, click to edit/add: Vital Signs - 24 hr 04/12/23 13:24 04/12/23 16:53 Temperature 97 F L Pulse Rate [Pulse Oximeter] 93 96 Respiratory Rate 16 18 Blood Pressure [Ri ght Upper Arm] 118/74 135/88 Pulse Oximetry 97 98 Oxygen Delivery Me thod Room Air Hospitalist - H&P: Result Labs Labs: Short CBC 04/12/23 Range/Units 16:24 WBC 9.27 (4.50-11.00) K/uL Hgb 15.5 (12.0-16.0) gm/dL Hct 47.3 (33.0-51.0) % Plt Count 481 H (140-440) K/uL BMP 04/12/23 16:24 Sodium 134 L Potassium 2.7 L* Chloride 88 L Carbon Dioxide 37 H BUN 13 Creatinine 1.1 Glucose 109 Calcium 9.2 Liver Function 04/12/23 Range/Units 16:24 Total Bilirubin 0.7 (0.1-1.5) mg/dL AST 26 (12-35) U/L ALT 24 (4-35) U/L Alkaline Phosphatase 105 (40-150) U/L Albumin 4.8 (3.3-5.0) g/dL Urine 04/12/23 Range/Units 16:50 Urine Color Yellow (Yellow) Urine Appearance Clear (Clear) Urine pH 6.0 (5.0-8.5) Ur Specific Donna 1.020 (1.000-1.030) Urine Protein Negative (Negative) Urine Glucose (UA) Negative (Negative) Assessment and Plan Assessment and plan (1) Acute hypokalemia: Status: Acute (2) Anorexia: Status: Acute (3) Status post laparoscopic cholecystectomy: Status: Acute (4) Growth hormone-producing pituitary adenoma: Problem comment: On octreotide injections monthly. History of pituitary tumor resection. Status: Acute (5) Ulcerative colitis: Status: Acute (6) Headache: Status: Acute Plan Assessment Teresita Orellana is a 47 year old female with past medical history depression, anxiety, Ulcerative colitis, prolonged QTc,prolactinoma, recnet hx of cholecystectomy on 02/26 presenting for evaluation of generalized weakness, decreased appetite, Endorses nausea, diarrhea. She presented to ED where cxr showed no acute findings. CT AP showed Questionable mucosal hyperenhancement throughout the ascending colon without significant wall thickening or pericolonic inflammation. Findings could represent a mild nonspecific colitis. Notable labs included normal WBC potassium 2.7. She was unable to tolerate PO potassium. She was started on IV potassium and admitted for further evaluation 1. Hypokalemia 2. Hx of UC 3. Acute colitis; infectious vs inflammatory ct showing thickening or pericolonic inflammation. Findings could represent a mild nonspecific colitis. 4. Hx of prolonged QTc 5. Hx of prolactinoma 6. Hx of migraine headache 7. recent hx of cholecystectomy 8. hx of depression/anxiety 9. rule out uti PLan -admit to inpatient -IVF -potassium replacement -check mg -stool cx -start zosyn -f/u Ucx -tele -baseline EKG -hold SSRI given hx of prolonged QTc -if headache continues consider MRI brain -protonix Code-Full DVt-heparin
[2023-04-12] MEDS: HYDROmorphone 0.5 mg/0.5 ml inj IVP (22:38)
[2023-04-12] MEDS: OXYCODONE 5 MG TABLET PO (22:39)
[2023-04-12] MEDS: 0.9 % SODIUM CHLORIDE 1000 ml 1,000 ML 125 ML IV (22:45)
[2023-04-12] MEDS: PIPERACILLIN/TAZOBACTAM 3.375 GM in 0.9 % SODIUM CHLORIDE Mini-bag 100 ML IVPB (22:47)
[2023-04-12 23:00] VITALS: BP 103/62; PULSE 74; PULSE 75; RESP 18; TEMP 36.6; O2SAT 96
[2023-04-12] MEDS: HEPARIN 5,000 UNIT/0.5 ML INJ 5000 UNIT SUBCUT (23:26)
[2023-04-12] MEDS: PANTOPRAZOLE SODIUM 40 MG INJ IVP (23:26)
[2023-04-13] VITALS (7 sets, daily range): BP systolic 96–118; BP diastolic 58–73; PULSE 69–82; RESP 18; TEMP 36.3–36.8; O2SAT 96–100
[2023-04-13] MEDS: POTASSIUM CHLORIDE 10 MEQ/100 ML PIGGYBACK 100 MEQ IVPB ×9 (00:32→22:03)
[2023-04-13] MEDS: HYDROmorphone 0.5 mg/0.5 ml inj IVP ×4 (00:33→20:45)
[2023-04-13] MEDS: PIPERACILLIN/TAZOBACTAM 3.375 GM in 0.9 % SODIUM CHLORIDE Mini-bag 100 ML IVPB ×2 (03:34→09:36)
[2023-04-13] MEDS: LORazepam 2 MG/ML inj 0.5 MG IVP ×2 (03:54→14:37)
[2023-04-13] MEDS: 0.9 % SODIUM CHLORIDE 1000 ml 1,000 ML 125 ML IV ×2 (06:24→14:46)
--- NOTE | 2023-04-13 06:35 | PC.NURSE ---
Pt A&O. VSS and on RA w/ sats >90%. Pt complained of headache rating it 5-7/10. PRN Dilated given with stated relief. Denies n/v. Denies dizziness. IND in room. ?
[2023-04-13 07:30] LABS: Basophils Absolute Auto 0.03 K/uL (0.00-0.30); Basophils Percent Auto 0.4 % (0.0-3.0); Eosinophils Absolute Auto 0.08 K/uL (0.00-0.50); Hematocrit 37.1 % (33.0-51.0); Immature Granulocytes Abs Auto 0.01 K/uL (0.00-0.30); Immature Granulocytes Pct Auto 0.1 %; Lymphocytes Absolute Auto 1.77 K/uL (0.90-2.90); Lymphocytes Percent Auto 23.1 % (20-44); Mean Corpuscular HGB Conc 32 gm/dL (32-36); Mean Corpuscular Hemoglobin 27 pg (26-34); Mean Corpuscular Volume 82 fL (80-100); Monocytes Percent Auto 6.3 % (0.0-11.0); Neutrophils Percent Auto 69.1 % (42.0-72.0); Platelet Count* 342 K/uL (140-440); RDW Coefficient of Variation % 13.9 % (11.5-15.5); Red Blood Count 4.51 m/uL (4.00-5.20); White Blood Count* 7.67 K/uL (4.50-11.00)
[2023-04-13 07:41] LABS: Slide Review Reflex No
[2023-04-13 07:46] LABS: Chloride* 98 mmol/L (96-114); Sodium* 132 mmol/L (135-149)
[2023-04-13 07:49] LABS: Blood Urea Nitrogen* 12 mg/dL (5-24); Carbon Dioxide* 32 mmol/L (20-32); Est. Creatinine Clearance* 73.46; Estimated Glomerular Filt Rate 70 ml/min; Glucose* 105 mg/dL (60-115)
[2023-04-13 07:50] LABS: Calcium* 7.5 mg/dL (8.4-10.6)
[2023-04-13 08:00] LABS: Potassium* 2.9 mmol/L (3.6-5.1)
[2023-04-13] MEDS: SODIUM CHLORIDE 0.9 % (FLUSH) 10 ML SYRINGE 5 ML IVF ×2 (09:36→20:46)
[2023-04-13] MEDS: buPROPion XL 150 MG TABLET 300 MG PO (09:36)
--- NOTE | 2023-04-13 12:16 | PM.IMPN1 ---
Progress Note: A&P Assessment and plan (1) Acute hypokalemia: Status: Acute (2) Ulcerative colitis: Status: Acute (3) Headache: Status: Acute (4) Anorexia: Status: Acute (5) Status post laparoscopic cholecystectomy: Status: Acute Plan Assessment: Teresita Orellaan is a 47 year old female with past medical history depression, anxiety, Ulcerative colitis, prolonged QTc,prolactinoma, recnet hx of cholecystectomy on 02/26 presenting for evaluation of generalized weakness, decreased appetite, Endorses nausea, diarrhea. She presented to ED where cxr showed no acute findings. CT AP showed?Questionable mucosal hyperenhancement throughout the ascending colon without significant wall thickening or pericolonic inflammation. Findings could represent a mild nonspecific colitis. Notable labs included normal WBC potassium 2.7. She was unable to tolerate PO potassium. She was started on IV potassium and admitted for further evaluation 1. Hypokalemia potassium today 2.9 2. Hx of UC 3. Acute colitis; infectious vs inflammatory ct showing thickening or pericolonic inflammation. Findings could represent a mild nonspecific colitis. 4. Hx of prolonged QTc 5. Hx of prolactinoma 6. Hx of migraine headache 7. recent hx of cholecystectomy 8. hx of depression/anxiety 9. rule out uti Plan for 04/13/23 -IVF -potassium replacement -check mg -stool cx discontinue; no diarrhea -dc zosyn do not suspect infectious colitis; switch to ceftriaxone for possible UTI pending UCx -f/u Ucx -tele hx of prolonged QTc -baseline EKG -hold SSRI given hx of prolonged QTc -protonix -utpatient GI follow up Code-Full Dispo-hopefully home tomorrow barrier to discharge: hypokalemia and tolerating diet DVt-heparin dc'd per patient request; ambulatory changed from inpatient status to obs per utlization management Family communication: discussed with Subjective Date Seen: 04/13/23 Interval history: headache improved no abdominal pain no diarrhea still no BM; will dc c diff and stool culture no appetite; not eating anything continues to be hypokalemic Exam Narrative: Exam Narrative: Gen: no acute distress HEENT: NCAT EOMI mmm CV: RRR normal s1 s2 Lungs: CTAB Abd: Soft,nt, nd Neuro: Alert, oriented, CN grossly intact; nonfocal screening?exam Psych: appropriate affect MSK: age appropriate muscle mass Skin; Warm, dry no rash on face Const: Vital Signs, click to edit/add: Vital Signs - 24 hr 04/12/23 13:24 04/12/23 16:53 04/12/23 21:19 Temperature 97 F L 98.4 F Pulse Rate Pulse Rate [Pulse Oximeter] 93 96 Pulse Rate [Right] 85 Respiratory Rate 16 18 18 Blood Pressure [Le ft Arm] 125/77 Blood Pressure [Ri ght Upper Arm] 118/74 135/88 Pulse Oximetry 97 98 [facility] 04/12/23 23:00 04/12/23 23:00 04/13/23 00:52 Temperature 97.9 F Pulse Rate 74 Pulse Rate [Pulse Oximeter] 75 Pulse Rate [Right] Respiratory Rate 18 18 Blood Pressure [Le ft Arm] 103/62 Blood Pressure [Ri ght Upper Arm] Pulse Oximetry 96 97 [facility] 04/13/23 02:47 04/13/23 07:00 04/13/23 07:00 Temperature 97.8 F 97.4 F L Pulse Rate 71 Pulse Rate [Pulse Oximeter] 74 72 Pulse Rate [Right] 75 Respiratory Rate 18 18 Blood Pressure [Le ft Arm] 96/66 104/64 Blood Pressure [Ri ght Upper Arm] Pulse Oximetry 98 100 [facility] 04/13/23 07:00 04/13/23 11:00 Temperature 97.8 F Pulse Rate Pulse Rate [Pulse Oximeter] 71 69 Pulse Rate [Right] Respiratory Rate 18 18 Blood Pressure [Le ft Arm] 104/67 Blood Pressure [Ri ght Upper Arm] Pulse Oximetry 100 [facility] Labs Labs: Laboratory Results - last 24 hr 04/12/23 04/12/23 04/12/23 16:24 16:50 17:00 WBC 9.27 RBC 5.91 H Hgb 15.5 Hct 47.3 MCV 80 MCH 26 MCHC 33 RDW Coeff of Susan 13.6 Plt Count 481 H Neut % (Auto) 64.7 Lymph % (Auto) 27.3 [place] % (Auto) 6.5 Eos % (Auto) 0.9 Baso % (Auto) 0.3 Neut # (Auto) 6.00 Lymph # (Auto) 2.53 [place] # (Auto) 0.60 Eos # (Auto) 0.08 Baso # (Auto) 0.03 Sodium 134 L Potassium 2.7 L* Chloride 88 L Carbon Dioxide 37 H BUN 13 Creatinine 1.1 Estimated Creat Clear 66.79 Estimated GFR 63 Glucose 109 Calcium 9.2 Magnesium 2.2 Total Bilirubin 0.7 AST 26 ALT 24 Alkaline Phosphatase 105 C-Reactive Protein 0.8 Total Protein 8.3 Albumin 4.8 Lipase 111 Urine Color Yellow Urine Appearance Clear Urine pH 6.0 Ur Specific [place] 1.020 Urine Protein Negative Urine Glucose (UA) Negative Urine Ketones Negative Urine Blood Negative Urine Nitrite Negative Urine Bilirubin 1+ A Urine Urobilinogen 1.0 Ur Leukocyte Esterase Negative Urine RBC 0-2 Urine WBC 5-10 A Ur Squamous Epith Cells Many A Urine Bacteria Few A SARS-CoV-2 (PCR) Negative SARS-CoV-2 Lab Acknowledgement Test Added 04/13/23 06:38 WBC 7.67 RBC 4.51 Hgb 12.0 Hct 37.1 MCV 82 MCH 27 MCHC 32 RDW Coeff of Susan 13.9 Plt Count 342 Neut % (Auto) 69.1 Lymph % (Auto) 23.1 [place] % (Auto) 6.3 Eos % (Auto) 1.0 Baso % (Auto) 0.4 Neut # (Auto) 5.30 Lymph # (Auto) 1.77 [place] # (Auto) 0.50 Eos # (Auto) 0.08 Baso # (Auto) 0.03 Sodium 132 L Potassium 2.9 L* Chloride 98 Carbon Dioxide 32 BUN 12 Creatinine 1.0 Estimated Creat Clear 73.46 Estimated GFR 70 Glucose 105 Calcium 7.5 L Magnesium Total Bilirubin AST ALT Alkaline Phosphatase C-Reactive Protein Total Protein Albumin Lipase Urine Color Urine Appearance Urine pH Ur Specific [place] Urine Protein Urine Glucose (UA) Urine Ketones Urine Blood Urine Nitrite Urine Bilirubin Urine Urobilinogen Ur Leukocyte Esterase Urine RBC Urine WBC Ur Squamous Epith Cells Urine Bacteria SARS-CoV-2 (PCR) Lab Acknowledgement Test Added
[2023-04-13] MEDS: cefTRIAXone 1 GM in 0.9 % SODIUM CHLORIDE Mini-bag 100 ML IVPB (14:45)
[2023-04-13 16:47] LABS: Potassium* 3.2 mmol/L (3.6-5.1)
[2023-04-13 16:56] LABS: Magnesium* 2.2 mg/dL (1.5-2.6)
--- NOTE | 2023-04-13 18:38 | PC.NURSE ---
[id number]: Patient had an uneventful day. Patient with hypokalemia today. Patient potassium replaced and then rechecked. Rechecked at 3.2. 4 more k riders ordered. Patient ate broth earlier and immediately had a diarrheal episode. Patient reports was hesitate to eat again but did try dinner and did not have diarrhea. Patient with no shortness of breath noted. Patient independent in room. Patient with no vomiting today. Patient vitally stable.
[2023-04-13] MEDS: MIRTAZAPINE 15 MG TABLET 30 MG PO (20:45)
[2023-04-13] MEDS: 0.9 % SODIUM CHLORIDE 1000 ml 1,000 ML IV (20:45)
[2023-04-14 00:06] VITALS: BP 116/74; PULSE 84; RESP 16; TEMP 36.2; O2SAT 99
[2023-04-14] MEDS: 0.9 % SODIUM CHLORIDE 1000 ml 1,000 ML 125 ML IV (00:09)
[2023-04-14 03:00] VITALS: BP 120/75; PULSE 80; RESP 18; TEMP 36.9; O2SAT 98
--- NOTE | 2023-04-14 06:00 | PC.NURSE ---
Pt A&O. Ind in room. VSS and on RA w/ sats >90%. Denies pain and n/v. Increased appetite. Pt did have one loose BM. ?
[2023-04-14 06:30] LABS: Basophils Absolute Auto 0.02 K/uL (0.00-0.30); Basophils Percent Auto 0.4 % (0.0-3.0); Eosinophils Absolute Auto 0.08 K/uL (0.00-0.50); Eosinophils Percent Auto 1.6 % (0.0-7.0); Hemoglobin* 11.5 gm/dL (12.0-16.0); Immature Granulocytes Abs Auto 0.01 K/uL (0.00-0.30); Immature Granulocytes Pct Auto 0.2 %; Lymphocytes Absolute Auto 1.47 K/uL (0.90-2.90); Lymphocytes Percent Auto 30.1 % (20-44); Mean Corpuscular HGB Conc 32 gm/dL (32-36); Mean Corpuscular Hemoglobin 26 pg (26-34); Mean Corpuscular Volume 82 fL (80-100); Monocytes Percent Auto 5.5 % (0.0-11.0); Neutrophils Absolute Auto 3.03 K/uL (1.7-7.0); Neutrophils Percent Auto 62.2 % (42.0-72.0); Platelet Count* 316 K/uL (140-440); RDW Coefficient of Variation % 13.7 % (11.5-15.5); Red Blood Count 4.38 m/uL (4.00-5.20); White Blood Count* 4.88 K/uL (4.50-11.00)
[2023-04-14 06:33] LABS: Slide Review Reflex No
[2023-04-14 06:49] LABS: Chloride* 106 mmol/L (96-114); Potassium* 3.5 mmol/L (3.6-5.1); Sodium* 139 mmol/L (135-149)
[2023-04-14 06:52] LABS: Carbon Dioxide* 30 mmol/L (20-32); Creatinine* 0.7 mg/dL (0.5-1.5); Est. Creatinine Clearance* 104.95; Estimated Glomerular Filt Rate 108 ml/min
[2023-04-14 06:53] LABS: Blood Urea Nitrogen* 5 mg/dL (5-24); Calcium* 7.7 mg/dL (8.4-10.6); Glucose* 114 mg/dL (60-115)
[2023-04-14 08:04] VITALS: BP 125/77; PULSE 84; RESP 18; TEMP 36.6; O2SAT 97
[2023-04-14 08:27] VITALS: PULSE 80
[2023-04-14] MEDS: SODIUM CHLORIDE 0.9 % (FLUSH) 10 ML SYRINGE 5 ML IVF (09:25)
[2023-04-14] MEDS: CHOLESTYRAMINE POWDER 4 GM PO (11:46)
[2023-04-14] MEDS: POTASSIUM CHLORIDE 10 MEQ CAPSULE ER PO (11:46)
[2023-04-14 12:10] VITALS: BP 133/77; PULSE 82; RESP 16; TEMP 36.3; O2SAT 100
[2023-04-14 14:41] VITALS: PULSE 80; RESP 16; TEMP 36.3
--- NOTE | 2023-04-16 16:22 | PM.DS1 ---
DS: Providers Provider Time Seen by Provider: 09:00 Date Seen: 04/14/23 Date of admission: 04/13/23 12:14 Primary care physician: Quynh San APRN, CONTAINER CRANE OPERATOR Admitting Clinician: Grover Gracia MD Attending Physician on discharge: Dhaval Jackson MD Date of Discharge: 04/14/23 DS: Diagnosis Discharge Diagnosis (1) Acute hypokalemia: Status: Acute (2) Diarrhea: Status: Acute (3) Post-cholecystectomy syndrome: Status: Acute Problem details: Suspected as possible cause of diarrhea, 04/14/2023 (4) Status post cholecystectomy: Status: Acute Problem details: 02/26/2023 (5) Dehydration: Status: Acute (6) Ulcerative colitis: Status: Acute DS: Summary Hospital Course Hospital Course: Teresita Orellana is a 47 year old female with past medical history depression, anxiety, Ulcerative colitis, prolonged QTc,prolactinoma, recnet hx of cholecystectomy on 02/26 presenting for evaluation of generalized weakness. The patient endorses diarrhea and decreased appetite. Endorses nausea, headache, Denies chest pain. Has intermittent SOB. She presented to ED where cxr showed no acute findings. CT AP showed?Questionable mucosal hyperenhancement throughout the ascending colon without significant wall thickening or pericolonic inflammation. Findings could represent a mild nonspecific colitis. Notable labs included normal WBC potassium 2.7. She was unable to tolerate PO potassium. She was started on IV potassium and admitted for further evaluation. Her potassium normalized. Her nausea eventually resolved. She was then able to tolerate oral potassium. After discussing the chronology of her diarrhea and the paucity of systemic symptoms to suggest an active colitis, we determined to attempt empiric treatment for possible post cholecystectomy diarrhea. She attempted oral Questran but was unable to tolerated. Thus at time of discharge we are not attempting colestipol tabs. Will need followup for the same with her primary care physician. Status at Discharge Functional status at discharge: independent ambulation Overall status at discharge: patient is progressing back to baseline Time Spent with Patient Time attestation: Total time spent providing and/or coordinating discharge services: Time spent: Greater than 30 minutes Exam Narrative: Exam Narrative: Gen: no acute distress HEENT: NCAT EOMI mmm CV: RRR normal s1 s2 Lungs: CTAB Abd: Soft,nt, nd Neuro: Alert, oriented, CN grossly intact; nonfocal screening?exam; independent in transfer, station, and gait Psych: appropriate affect MSK: age appropriate muscle mass Skin; Warm, dry no rash on face DS: Data Data Completed and Pending Completed studies during hospitalization: Procedures Resection of Gallbladder, Percutaneous Endoscopic Approach (02/25/23) Discharge Plan Discharge Disposition: Home, Self-Care Date of Admission: 04/13/23 12:14 Attending Provider on Discharge: Dhaval Jackson Primary Care Provider: Quynh San Condition: Improved Anticipated Discharge Date/Time: 04/14/23 14:00 Discharge Medications: New potassium chloride 10 mEq Capsule, Extended Release 10 meq PO BIDWM 30 Days Qty: 60 0RF colestipol 1 gram tablet 1 g PO BID Qty: 60 2RF Continued escitalopram oxalate 20 mg tablet 60 mg PO DAILY octreotide,microspheres 20 mg suspension,extended rel recon 20 mg IM Q4W trazodone 100 mg tablet 200 mg PO QHS mirtazapine 30 mg tablet 30 mg PO HS bupropion HCl 300 mg tablet extended release 24 hr 300 mg PO QAM lorazepam 1 mg tablet 1 mg PO DAILY PRN venlafaxine 150 mg capsule,extended release 24hr 450 mg PO DAILY Discontinued chlorthalidone 25 mg tablet 25 mg PO DAILY Discharge Orders: Discharge Order (Routine); Ordered 04/14/23 Ordered By: Dhaval Jackson Patient Education: Potassium Chloride (By mouth) (K-Dur, K-Candie, K-Tab, Felipe Mur), Colestipol (By mouth) (Colestid, Colestid Flavored, Colestid Gran), Dehydration (GEN), Potassium Content of Foods List (GEN), Hypokalemia (GEN), Chronic Diarrhea (GEN), Nutrition Tips for Relief of Diarrhea (GEN) Activity Level: Activity as Tolerated Discharge Diet: Regular and Other Diet Detail: B.R.AEulaTRoryY. diet temporarily for diarrhea Follow Up Appointments: Quynh San, DIRECTOR DIGITAL COMMUNICATIONS, CONTAINER CRANE OPERATOR [Primary Care Provider] - 04/26/23 12:45 am ([facility] [place], pre-visit serum potassium level. ) Forms: [facility] Info Instructions
== END 2023-04-14 16:15 | disposition home or self-care (01) ==
LOC: ED 20:24 → MEDSURG 04-13 13:33
PROVIDERS: Admitting Provider Hospitalist; Emergency Provider Family Medicine; PCP Nurse Practitioner Family; Visit Provider Hospitalist
DX: E87.6 Hypokalemia (principal); K51.90 Ulcerative colitis, unspecified, without complications; K91.5 Postcholecystectomy syndrome; R82.81 Pyuria; R51.9 Headache, unspecified; R63.0 Anorexia; Z68.28 Body mass index [BMI] 28.0-28.9, adult; E86.0 Dehydration; R19.7 Diarrhea, unspecified; R68.83 Chills (without fever); M54.9 Dorsalgia, unspecified; R05.9 Cough, unspecified; R53.83 Other fatigue; R11.0 Nausea; R60.0 Localized edema; E22.0 Acromegaly and pituitary gigantism; D35.2 Benign neoplasm of pituitary gland; M62.81 Muscle weakness (generalized); R63.5 Abnormal weight gain; F12.90 Cannabis use, unspecified, uncomplicated; R10.9 Unspecified abdominal pain; Z87.19 Personal history of other diseases of the digestive system; Z90.710 Acquired absence of both cervix and uterus; Z90.89 Acquired absence of other organs; Z90.49 Acquired absence of other specified parts of digestive tract; Z87.42 Personal history of other diseases of the female genital tract; Z87.828 Personal history of other (healed) physical injury and trauma; Z86.018 Personal history of other benign neoplasm; Z92.89 Personal history of other medical treatment; Z87.891 Personal history of nicotine dependence; Z98.890 Other specified postprocedural states
CPT/HCPCS: 36415; 71045; 74177; 80048; 80053; 81001; 83690; 83735; 84132; 85025; 86140; 87045; 87046; 87086; 87427; 87493; 87635; 93005; 96361; 96365; 96366; 96367; 96368; 96372; 96375; 96376; 99285; G0378; A9270; C9113; J0696; J1170; J1644; J1885; J2060; J2405; J2543; J3480; J7030; Q9967

== ENCOUNTER 2023-04-26 13:09 | Outpatient (CLI) | payer BC, SELFPAY | END 2023-04-26 13:10 | disposition home or self-care (01) | PROVIDERS: PCP Nurse Practitioner Family; Visit Provider Nurse Practitioner Family | DX: E87.6 Hypokalemia (principal); Z51.81 Encounter for therapeutic drug level monitoring | CPT/HCPCS: 80053 ==

== ENCOUNTER 2023-05-31 14:08 | Outpatient (CLI) | payer BC, SELFPAY | END 2023-05-31 14:09 | disposition home or self-care (01) | PROVIDERS: PCP Nurse Practitioner Family; Visit Provider Nurse Practitioner Family | DX: R55 Syncope and collapse (principal); R79.81 Abnormal blood-gas level; E87.6 Hypokalemia; R03.0 Elevated blood-pressure reading, without diagnosis of hypertension; E55.9 Vitamin D deficiency, unspecified | CPT/HCPCS: 80053; 84484; 85379 ==

== ENCOUNTER 2023-06-09 14:09 | Outpatient (CLI) | payer BC, SELFPAY | END 2023-06-09 14:10 | disposition home or self-care (01) | PROVIDERS: PCP Nurse Practitioner Family; Visit Provider Nurse Practitioner Family | DX: R55 Syncope and collapse (principal); R00.2 Palpitations; R79.81 Abnormal blood-gas level | CPT/HCPCS: 93225; 93226 ==

== ENCOUNTER 2023-06-23 09:07 | Outpatient (CLI) | payer BC, SELFPAY ==
--- NOTE | 2023-06-23 10:00 | CRLHL7_ITS ---
For Patients: As a result of the Century Cures Act, medical imaging exams and procedure reports are released immediately into your electronic medical record. You may view this report before your referring provider. If you have questions, please contact your health care provider. Indication: Abdominal pain Technique: Postcontrast CT abdomen and pelvis. 93 cc Isovue 370 intravenous contrast. Please note that all CT scans at this facility use dose modulation, iterative reconstruction, and/or weight-based dosing when appropriate to reduce radiation dose to as low as reasonably achievable. Comparison: 04/12/2023 Findings: Lung bases are clear. There is no free intraperitoneal air. 4.9 cm hiatal hernia. No suspicious liver lesion. Small focus of fat deposition within the liver adjacent to the falciform ligament. Gallbladder absent. Spleen is normal. Normal adrenal glands. Kidneys are within normal limits. Normal pancreas. Bladder normal. No pelvic soft tissue mass. Uterus absent. Mild diverticulosis. No diverticulitis. No bowel obstruction. Normal appendix. Ovaries appear normal for age. Normal ureters. No adenopathy. Small left paramidline supraumbilical hernia containing fat measuring 1 cm. Degenerative joint disease of both hips. Impression: 1 cm left supraumbilical paramidline abdominal wall hernia, unchanged. Chronic sigmoid diverticulosis with mild chronic sigmoid wall thickening. No acute inflammation or bowel obstruction. Status post cholecystectomy. No biliary obstruction. Please note that all CT scans at this facility use dose modulation, iterative reconstruction, and/or weight-based dosing when appropriate to reduce radiation dose to as low as reasonably achievable. Dictated by Jeremías Arias MD @ 06/23/2023 1:17:34 PM (Electronically Signed)
== END 2023-06-23 09:08 | disposition home or self-care (01) ==
LOC: CT 09:08
PROVIDERS: PCP Nurse Practitioner Family; Visit Provider Nurse Practitioner Family
DX: R10.9 Unspecified abdominal pain (principal); K43.9 Ventral hernia without obstruction or gangrene; K57.30 Diverticulosis of large intestine without perforation or abscess without bleeding; R14.0 Abdominal distension (gaseous); R93.89 Abnormal findings on diagnostic imaging of other specified body structures
CPT/HCPCS: 74177; Q9967

== ENCOUNTER 2024-02-17 08:22 | Outpatient (CLI) | payer BC, SELFPAY ==
--- OUTSIDE RECORDS SUMMARY | 2024-02-18 05:59 | XMS_ITS | Continuity of Care Document ---
Author Name Unknown Organization [facility] Address [address] [address] [place] [address] Phone Care Team Providers Care Diver'S Tender Name Role Phone No Information Unavailable Unavailable Allergies, Adverse Reactions, Alerts Substance Reaction Status Criticality No Known Allergies Active No Inform ation Medications Medication Instructions Dosage Effective Dates (start - stop) Status Comments omeprazole 40 mg capsule,delayed release take 1 capsule by ORAL route every day 40 MG - Active SANDOSTATIN (unknown strength) inject 1 milliliter by subcutaneous route 3 times every day Not Available - Active EFFEXOR XR (unknown strength) take 1 capsule by oral route every day with food Not Available - Active TRAZODONE HCL (unknown strength) take 2 tablet by oral route every day at bedtime Not Available - Active BUPROPION HCL (unknown strength) take 1 tablet by oral route 3 times every day Not Available - Active LORAZEPAM (unknown strength) take 2 tablet by oral route 3 times every day as needed Not Available - Active Procedures Procedure Date Offic/outpt E&m Estab Low-mod 3 Colonoscopy Flex; W/remov Les- 23 Colonoscopy Flex; W/bx 1/mx Ugi Endo; W/bx 1/mx Level Iv-surg Path Gross/micro Office Cons New/estab Mod Advance Directives Directive Yes / No Effective Date File Name No Information Encounters Encounter Description Practice Location Reason(s) For Visit Diagnoses Date Provider Providers Copied on Encounter [facility], [address] [address], [place], [id number], [place] tel:[phone] No Information 3 No Information Offic/outpt E&m Estab Low-mod [facility], [address] [address], [place], [id number], [place] tel:[phone] [facility] GI Symptoms or Concerns (chief complaint) Gastritis, unspecified, without bleedingUnspe cified abdominal painNauseaAbd ominal bloating 3 Decelles CARMELITA Briseno. [address] [place] [address], [id number], [place]. tel:[phone] Referring Provider: Referral Self, USE FOR SELF REFERRALS. [facility] [employer] [facility], [address] [address], [place], [id number], [place] tel:[phone] [facility] GI Symptoms or Concerns (chief complaint) Gastritis without bleeding, unspecified chronicity, unspecified gastritis typeHiatal herniaColorec francisco polyp detected on colonoscopyUn specified abdominal painBenign neoplasm of ascending colonGastriti s, unspecified, without bleeding 3 Brenda STEPHENS February. [facility] [address], [id number], [place]. tel:[phone] Referring Provider: Vanesa Barnard NP, [address] [place] [address], [id number]. tel:[phone] Office Cons New/estab Mod [facility], [address] [address], [place], [id number], [place] tel:[phone] [facility] GI Symptoms or Concerns (chief complaint) Abdominal pain, unspecified abdominal locationAbdom inal distentionAbn ormal CT scan 3 Evon Alexis. [address] [place] [address], [id number], [place]. tel:[phone] Referring Provider: Quynh San NP , [address] [place] [address], [address]. tel:[phone] [facility], [address] [address], [place], [id number], [place] tel:[phone] [facility] No Information Jemal Bailon. [address] [facility], [facility] [address], [place], [place], [id number], [place]. tel:[phone] Family History Family Member Type Diagnosis Age At Onset Sister Problem (finding) Alcoholism Mother Problem (finding) Alcoholism Immunizations Vaccine Date Status Comments tetanus toxoid, reduced diphtheria toxoid, and acellular pertussis vaccine, adsorbed administered Note: [facility] b i-directional interface ; Source: Other Registry Novel [id number], all formulations administered Note: [facility] bi-direct ional interface ; Source: Other Registry Influenza, seasonal, injectable administe red Note: [facility] bi- directional interface ; Source: Other Registry Payers Payer name Insurance type Covered green party ID Authoriza tion(s) No Information Social History Type Description Quantity Date Captured Comments Sex Female Smoking Status No Information Chief Complaint And Reason For Visit No Information Reason For Referral Reason For Referral No Information Plan Of Treatment Date Type Action Status Referral Ordered: Colonoscopy Appointment date/timeframe: 08/04/2023 ordered Referral Ordered: EGD Appointment date/timeframe: 08/04/2023 ordered Referral Ordered: CT Abdomen And Pelvis WITH Contrast Appointment date/timeframe: 06/30/2023 ordered History Of Present Illness Encounter Date Complaint History Of Prese nt Illness GI Symptoms or Concerns Teresita is a 48-year-old female who presents for follow-up of abdominal pain, bloating, nausea.In review, patient presented for a clinic visit in June 2023. At that point she had reported gastrointestinal symptoms over the past 6 months to 1 year. She was experiencing intermittent abdominal pain both in the upper and lower abdomen regions at different times. Most bothersome for her was abdominal distention, fullness and bloating that became progressively worse. She went to the ER due to right upper quadrant pain in February where she had a CT scan and subsequently underwent a laparoscopic cholecystectomy due to cholecystitis. She does believe her right upper quadrant pain improved following surgery but she continues to struggle with abdominal fullness bloating. She had a CT scan completed 06/23/2023 which showed a supraumbilical abdominal wall hernia, chronic sigmoid diverticulosis with mild chronic sigmoid wall thickening, and no acute inflammation or bowel obstruction. Colonoscopy completed on 08/04/2023 revealed one polyp and was otherwise unremarkable. EGD completed on 08/04/2023 revealed a 5mm stomach ulcer, gastritis without bleeding, and medium hiatal hernia. Celiac biopsies and H pylori biopsies were negative. It was recommended she complete an 8-week course of omeprazole 40mg to treat the ulcer. Today she reports feeling ill since having the procedures done. She continues to struggle with bloating as well as nausea and loss of appetite. She feels bloating has improved somewhat but that she is very nauseous now. She states that food does not seem appealing. She notes that she last ate a few days ago and it was just a bite of an ice cream sandwich. Following that instance she had diarrhea. She reports having irregular bowel movements since procedure, noting one loose bowel movement every few days. She denies any fever, chills, blood in her stool, vomiting. GI Symptoms or Concerns GI Symptoms or Concerns Teresita de la cruz is a 48-year-old female who was seen in consultation at the request of Quynh Chavez NP for abdominal pain, abdominal distention, and bloating.The patient reports gastrointestinal symptoms over the past 6 months to 1 year. She has had intermittent abdominal pain both in the upper and lower abdomen at different times. Most bothersome is abdominal distention, fullness, and bloating that has become progressively worse. She had gone to the ER due to right upper quadrant pain in February where she had a CT scan done and immediately underwent a laparoscopic cholecystectomy due to cholecystitis. She does state that her right upper quadrant pain improved following the surgery but she has continued to struggle with the abdominal fullness and bloating. She describes significant bloating on a daily basis that seems to occur regardless of what she eats. She does find that often it becomes worse after eating. She has occasional pain in the upper abdomen that does not necessarily seem to be associated with food intake. She actually finds that this specific discomfort is at times worse when she is straining to have a bowel movement. Additionally, she has occasional lower abdominal discomfort that does not seem to have any specific pattern associated with it.She states that she does have bowel movements most days, however she does strain at times to have a bowel movement. She is not currently taking any bowel regimen. She has a history of 2 surgeries for rectal prolapse.She denies nausea, vomiting, acid reflux, hematochezia, or melena.About a year ago she was hospitalized for several days following a workup for abdominal pain. She states that she was told that she has ulcerative colitis at this time, however it sounds like only imaging was done (never a colonoscopy/biopsies). She has had one colonoscopy before, about 5 years ago.She is undergoing evaluation with cardiology due to unexplained edema. She has been started on diuretics which has been helpful for this. She has however gained 40 pounds over the past 8 months or so without clear cause. 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 Social historyShe is a non-smoker, does note use alcohol, and rarely uses NSAIDs. Functional Status Date Functional Assessmen t No Information Instructions Date Instruction Additional Infor luiz GERD Related to Gastr itis without bleeding, unspecified chronicity, unspecified gastritis type Colon Cancer Prevention Related to Colorectal polyp detected on colonoscopy Colon Polyps Related to Color ectal polyp detected on colonoscopy 1. CT scan given ten derness on exam and abdominal pain. 2. Upper endoscopy and colonoscopy to further evaluate your symptoms. 3. I will request records from your hospitalization at [facility] and imaging done last year as well as your recent surgery. 4. Try Gas-X (simethicone) for bloating/fullness. 5. Follow-up in clinic after the above. Call or message me with any questions or concerns in the meantime [phone]. Related to Abdominal pain, unspecified abdominal location Assessments Type Assessment Date No Information Patient Care Teams Name Effective Dates (start - stop) Status Members No Information
--- OUTSIDE RECORDS SUMMARY | 2024-02-18 05:59 | XMS_ITS | Continuity of Care Document ---
Author Name Unknown Organization [facility] Address [address] [address] [place] [address] Care Team Providers Care Slusher Operator Name Role Phone [place], [place] Unavailable Unav ailable Procedures Procedure Date Ugi Endo; W/bx /mx Colonoscopy Flex; W/bx /mx Colonoscopy Flex; W/remov Les- Advance Directives Directive Yes / No Effective Date File Name No Information Encounters Encounter Description Practice Location Reason(s) For Visit Diagnoses Date Provider Providers Copied on Encounter [facility], [address] [address], [place], [place], [id number], [facility] No Information [facility]. [address] [address], [place], [place], [id number], . tel:[phone] Referring Provider: Tiffanie Gutierrez MD, [address] [facility] [address], [place], [address] . tel:[phone] Family History Family Member Type Diagnosis Age At Onset No Information Payers Payer name Insurance type Covered green party ID Authoriza tion(s) [employer] [place] BL [id number] Social History Type Description Quantity Date Captured Comments Sex Female Smoking Status No Information Chief Complaint And Reason For Visit No Information Reason For Referral Reason For Referral No Information History Of Present Illness Encounter Date Complaint History Of Prese nt Illness No Information Functional Status Date Functional Assessmen t No Information Instructions Date Instruction Additional Infor mation No Information Assessments Type Assessment Date No Information Patient Care Teams Name Effective Dates (start - stop) Status Members No Information
--- OUTSIDE RECORDS SUMMARY | 2024-02-18 05:59 | XMS_ITS | Clinical Summary ---
Author Name Unknown Organization [employer] [facility] Address [place], [place] [address] Care Team Providers Care Exhibit Cleaner Name Role Phone Merline Rebolledo MD Primary Care Provider + Kristopher Sotelo MD Unavailable [phone] Allergies Active Allergy Reactions Criticality Noted Date Comments Penicillins *Unknown - Pt Doesn' t Remember 03/17/2006 Has had amoxicillin and done ok Medications Medication Sig Dispensed Refills Start Date End Date Status WELLBUTRIN XL 300 MG 24 HR TAB take 1 tablet (300mg) by oral route once daily 0 Active EFFEXOR XR 150 MG 24 HR CAP take 3 tabs daily 0 0 06/24/2009 Active escitalopram oxalate (LEXAPRO) 20 mg tablet Take 60 mg by mouth once daily. 0 12/12/2015 Active chlorthalidone (HYGROTON) 25 mg tablet TAKE 1 TABLET BY MOUTH 1 TIME PER DAY 02/12/2023 Active traZODone (DESYREL) 100 mg tablet 02/17/2023 Active omeprazole (PRILOSEC) 20 mg Delayed-Release capsule 02/12/2023 Active mirtazapine (REMERON) 30 mg tablet 02/17/2023 Active methylphenidate HCl 54 mg Extended-Release tablet Take 54 mg by mouth once daily. 08/20/2022 Active LORazepam (ATIVAN) 1 mg tablet TAKE ONE TABLET BY MOUTH NEEDED FOR MEDICAL PROCEDURE 01/31/2023 Active octreotide,microspher es (SANDOSTATIN LAR DEPOT) 20 mg injectionIndications: Acromegaly (HC) Inject 20 mg every 6 weeks 3 Each 3 02/25/2023 Active Active Problems Problem Noted Date Diagnosed Date Rectal prolapse 06/03/2016 Lateral cystocele 05/01/2016 Prolapse of uterus 05/01/2016 Midline cystocele 05/01/2016 Rectal prolapse 05/01/2016 Screening for human papillomavirus 02/03/2016 Overview: Obrien negative 09/15/13 IUD (intrauterine device) in place 01/03/2016 Overview: paraguard 12/2012? 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 Sotelo recommended follow up scan 01/20 and follow up with him after. Hormonal testing normal. Vitamin D deficiency 01/07/2010 Major depressive disorder, single episode, unspe cified 06/24/2009 Overview: Dr Kimberly Wisdom in [place] for meds Other acne 09/07/2006 Acromegaly Resolved Problems Problem Noted Date Diagnosed Date Resolved Date Acute sinusitis, unspecified 02/14/2013 01/03/2016 Prolactinoma 10/30/2010 12/12/2010 Less than 24 completed weeks of gestation 12/05/2009 10/30/2010 Breech extraction delivered 12/04/2009 10/30/2010 Placenta previa with hemorrhage, delivered 12/04/2009 10/30/2010 Other immediate h emorrhage, unspecified as to episode of care 12/04/20092009 Hemorrhage from placenta previa, antepartum 12/03/2009 12/05/2009 Inevitable complete miscarri age without complication 12/02/2009 10/30/2010 Premature rupture of membran es affecting fetus or 11/27/2009 10/30/2010 Breech presentation antepartum 11/27/2009 12/05/2009 Placenta previa without hemo rrhage, antepartum 11/27/2009 12/03/2009 Overview: Anterior placenta previa micrognathia 11/27/2009 0 Overview: May be consequence of oligohydramnios Cannot exclude associated syndrome Normal karyotype Oligohydramnios affecting fetus or 11/21/2009 10/30/2010 PROM (premature rupture of membranes) 11/21/2009 10/30/2010 High-risk supervision 10/22/2009 10/30/2010 Subchorionic bleed 10/22/2009 0 Low-lying placenta 10/22/2009 0 Depressive disorder, not elsewhere classified 09/07/20 06 06/24/2009 Immunizations Name Administration Dates Next Due Influenza A (H1N1), Inactivated (Age >=3 Years) 10/10/2009 Influenza, IIV3 (Age >=3 years) 08/26/2009 Td (Age >=7 Years) 11/07/2004 Tdap 08/24/2012 Family History Medical History Relation Name Comments Other Father alzheimers/fam hx ankylosing spondylitis Cancer Maternal Uncle Alcohol/Drug Mother Other Mother TB as child Relation Name Status Comments Father Alive Maternal Uncle Mother Alive Social History Tobacco Use Types Packs/Day Years Used Date Smoking Tobacco: Former Cigarettes Q uit: 12/01/2010 Smokeless Tobacco: Never Tobacco Cessation:Counseling Given: Yes Comments:e-cigs Alcohol Use Standard Drinks/Week Comments No 0 (1 standard drink = 0.6 oz pur e alcohol) 05/01/2016 Social Connections Answer Date Recorded Frequency of Communication with Friends and Fami ly Not on file 11/08/2021 Financial Resource Strain Answer Date R ecorded Difficulty of Paying Living Expenses Not on file 11/08/2021 Difficulty of Paying Living Expenses Not on file 11/08/2021 Sex and Gender Information Value Date Recorded Sex Assigned at Female 09/02/2020 3:09 PM CDT Gender Identity Female 09/02/2020 3:09 PM CDT Sexual Orientation Straight 09/02/2020 3: 09 PM CDT Obstetrics History Para Term AB IAB SAB Ectopic Multiple Livin g Live Births 5 4 3 1 1 0 1 0 0 3 4 Date Outcome GA Total Labor Labor/2nd/3rd Weight Sex Delivery Anes PTL Gloria A1 A5 Name Cl in SAB 03/08 Term 40w 0d 25h 00m/ 4.31 kg (9 lb 8 oz) M Vag Epidu ral N Niesha ng Gigi n Chris ns Delivery [facility] Comments:shoulder dyst ocia 11/27 22w 6d F Vag-Breec h Y Dece ased Wendy Lauri out Delivery Location:[facility] Comments:PROM, Previa, Hemorrhage, Stillborn, ? anomaly, abruption 11/21 Term 37w 0d 2.72 kg (6 lb) M Bautista plummer 08/03 Term 37w 0d 2.83 kg (6 lb 4 oz) M Bautista Niesha elian Last Filed Vital Signs Vital Sign Reading Time Taken Comments Blood Pressure 137/80 04/08/2020 3:50 PM CDT Pulse 115 04/08/2020 3:50 PM CDT Temperature 36.7 ??C (98.1 ??F) 09/24/2016 6:44 PM CS T Respiratory Rate 16 12/29/2019 9:56 AM HELPDESK MANAGER Oxygen Saturation 100% 09/24/2016 6:44 PM HELPDESK MANAGER Inhaled Oxygen Concentration - - Weight 71.2 kg (157 lb) 10/09/2019 9:51 AM HELPDESK MANAGER Height 176.3 cm (5' 9.41) 06/02/2016 7:55 AM CD T Body Mass Index 22.91 06/02/2016 7:55 AM CDT Plan of Treatment Health Maintenance Due Date Last Done Comments Depression screening for age 12+ 01/03/2017 01/03/2016 BMI (ht and wt on same day) for age 18+ 05/26/2017 05/26/2016, 04/16/2016, 01/03/2016 Colonoscopy through age 75 2021 Mammogram for age 45-75 2021 Pap test for age 21-65 05/26/2021 8, 05/26/2018, 01/03/2016, Additional history exists Tetanus booster 08/24/2022 08/24/2012, 11/07/2004 COVID-19 vaccine series ( season) 2023 Influenza for age 9-49 07/09/2024 10/10/2009, 2008 Lipids for age 45-75 11/26/2026 11/26/2021 HIV for age 15-65 Completed 01/22/2011, 08/26/2009 Hepatitis C screening for age 18-79 Completed 01/22/2011, 08/26/2009 Tdap Completed 08/24/2012 Pneumococcal series for age 6-64 Aged Out No longer eligible based on patient's age to complete this topic Medical Devices Implanted Type Area Finish Opener Device Identifier Shelf Expiration Date Model / Serial / Lot Implnt Transphenoidal Sellar Porex - [id number] Implanted:Qty: 1 on 11/04/2010 at [facility] [employer] [id number]# / / [id number] Mesh Pelvic 4x6in Gynemesh - [id number] Implanted:Qty: 1 on 06/02/2016 by Eli De León MD at [facility] Pelvis [employer] Womens H / Uro GPSL# / / [id number] Procedures Procedure Name Priority Date/Time Associated Diagnosis Comments LIPID PANEL W REFLEX MEASURED LDL Routine 11/26/2021 9:20 AM HELPDESK MANAGER Pituitary macroadenoma (HC) ROLL FORMING MACHINE SET UP OPERATOR THIN PREP PAP SCREEN IMAGED Routine 05/26/2018 12:00 PM CDT ANTI HIV 1/2 Routine 01/22/2011 3:20 PM CDT High-risk supervision ANTI HCV Routine 01/22/2011 3:20 PM CDT High-risk supervision from Last 3 Months or Most Recently Relevant to Health Maintenance Results * (ABNORMAL) LIPID PANEL W REFLEX MEASURED LDL (11/26/2021 9:20 AM HELPDESK MANAGER) CHOLESTEROL,TOTAL 215(H) 100 - 199 mg/dL 11/26/2021 3:40 PM HELPDESK MANAGER [facility] [employer] LABORATORY-[facility] TRAL LABORATORY TRIGLYCERIDES 104 <150 mg/dL 11/26/2021 3:40 PM HELPDESK MANAGER [facility] LABORATORY-[facility] TR[facility] LABORATORY HDL CHOLESTEROL 80 >40 mg/dL 3:40 PM HELPDESK MANAGER [facility] LABORATORY-[facility] TRAL LABORATORY NON-HDL CHOLESTEROL 135 <145 mg/dl 11/26/2021 3:40 PM HELPDESK MANAGER [facility] TRAL LABORATORY CHOL/HDL RATIO 2.69 <4.50 11/26/2021 3:40 PM HELPDESK MANAGER [facility] LABORATORY-[facility] TRAL LABORATORY LDL CHOLESTEROL 114 <=130 mg/dL 11/26/2021 3:40 PM HELPDESK MANAGER [facility] TRAL LABORATORY VLDL CHOLESTEROL 21 <=30 mg/dL 11/26/2021 3:40 PM HELPDESK MANAGER [facility] LABORATORY-[facility] TRAL LABORATORY PROVIDER ORDERED STATUS RANDOM 11/26/2021 3:40 PM HELPDESK MANAGER [facility] TRAL LABORATORY Blood BLOOD SPECIMEN / Unknown Venipuncture / Unknown 11/26/2021 9:20 AM HELPDESK MANAGER 11/26/2021 9:21 AM HELPDESK MANAGER Kristopher Sotelo MD [facility] [address] [place] [address], * ROLL FORMING MACHINE SET UP OPERATOR THIN PREP PAP SCREEN IMAGED (05/26/2018 12:00 PM CDT) Case Report Gynecologic Cytology Report ? Case: [id number] ? Authorizing Provider: ??Merline Rebolledo MD ??Collected: ? 05/26/2018 1200 ? First Screen: ?Roberto Roman ? Received: ?05/29/2018 1006 ? Specimen: ?ROLL FORMING MACHINE SET UP OPERATOR ThinPrep Vial Screening, Vaginal ? 06/07/2018 1:55 PM CDT [facility]AL [facility] INTERPRETATION/ RESULT NEGATIVE FOR INTRAEPITHELIAL LESION OR MALIGNANCY (NIL) (none) 06/07/2018 1:55 PM CDT [facility] LAB[facility]AT[facility] IMEN ADEQUACY Satisfactory for evaluation Endocervical component present 06/07/2018 1:55 PM CDT [facility] HPV REQUEST HPV and PAP 06/07/2018 1:55 PM CDT [facility] Menstrual Status Hysterectomy-cerv ix absent 06/07/2018 1:55 PM CDT [facility] Automated Review Successful 06/07/2018 1:55 PM CDT [facility] Comment:Specimen processed s uccessfully by automated community organizer device, ThinPrep Imaging System, [employer] ANCILLARY TESTING ROLL FORMING MACHINE SET UP OPERATOR HPV Ordered, Please see separate report 06/07/2018 1:[address] [facility] Note The pap test is a screening technique, not a diagnostic procedure. ??It is used primarily to screen for squamous cancers and precursor lesions. ??Published studies have shown that it is subject to both false negative and false positive results. ??The pap test should not be used as the sole means to diagnose or exclude pre-malignant and malignant lesions. Cytology is screened and interpreted at [facility] - [address], [place] [address] and [facility] - [address]; [place] [address] and [facility] - [address]; [place] [address] and [facility] [address]; [place] [address] 06/07/2018 1:[address] [facility] Other VAGINAL SWAB / Unknown 05/26/2018 12:00 PM CDT 05/29/2018 10:06 AM CDT Merline Rebolledo MD PATHOLOGY/CYTOLO GY [facility] [address] [place] [address], [place] * HEPATITIS C [55665.2] (01/22/2011 3:20 PM CDT) ANTI HCV Non-reacti ve [facility] Blood specimen (specimen) BLOOD SPECIMEN / Unknown 01/22/2011 3:20 PM CDT 01/22/2011 2:54 PM CDT Kostas Almonte DO SEND OUTS [facility] LABORATORY [place]NAL ZIP [phone] [address] * ANTI HIV 1/2 (01/22/2011 3:20 PM CDT) ANTI HIV 1/2 Non-reacti ve [facility] Blood specimen (specimen) BLOOD SPECIMEN / Unknown 01/22/2011 3:20 PM CDT 01/22/2011 2:54 PM CDT Kostas Almonte DO SEND OUTS Performing Organization Address [facility] Co de Phone Number [facility] LABORATORY INTERNAL ZIP [phone] [address] from Last 3 Months or Most Recently Relevant to Health Maintenance Advance Directives * Full Code (Latest Code Status on File) Date Activated Date Inactivated Comments 06/02/2016 1:46 PM 06/04/2016 1:10 PM * Full Code Date Activated Date Inactivated Comments 06/02/2016 6:48 AM 06/02/2016 1:46 PM * Full Code Date Activated Date Inactivated Comments 11/04/2010 11:29 AM 11/07/2010 1:09 PM * Full Code Date Activated Date Inactivated Comments 11/04/2010 6:41 AM 11/04/2010 11:29 AM * Full Code Date Activated Date Inactivated Comments 12/04/2009 8:22 AM 12/07/2009 3:49 PM Care Teams Exhibit Cleaner Relationship Specialty Start Date End Date Merline Rebolledo MD [address] [place] [address] PCP - General Family Practice 10/09/19 Kristopher Sotelo MD [address] [place] [address] [address] [place] [address] Endocrinology 02/19/23
== END 2024-02-17 08:23 | disposition home or self-care (01) ==
LOC: NFLDREF 02-18 05:57
PROVIDERS: PCP Nurse Practitioner Family; Referring Provider Nurse Practitioner Family; Visit Provider Nurse Practitioner Family
DX: R19.7 Diarrhea, unspecified (principal)
CPT/HCPCS: 87493

== ENCOUNTER 2024-02-22 08:00 | Outpatient (CLI) | payer BC, SELFPAY ==
--- NOTE | 2024-02-22 08:00 | CT_ITS ---
Patient: MODESTA OVALLE Facility:?[facility] RIS Patient ID:?[id number] Site Patient ID:?[id number]. Site :?[id number] Study:?CT-Sinus WITHOUT-02/22/2024 8:19:36 AM Ordering Physician:?DR. ABDALLA Final Report: Indication: Chronic sinusitis. Technique: Noncontrast CT of the paranasal sinuses with multiplanar reconstructions. Comparison: None available. Findings: The frontal sinuses, recesses, and agger nasi cells are clear. Apart from a retention cyst in the left maxillary alveolar recess, the maxillary sinuses are clear. An accessory left maxillary ostium is incidentally noted. The ostiomeatal complexes are clear. The anterior and posterior ethmoid air cells are clear. There are bilateral middle turbinate yashira bullosa. A small polyp versus retention cyst is noted in the left sphenoid sinus. The sphenoid sinuses and ostia are otherwise clear. On limited evaluation, the orbits and intracranial structures appear within normal limits. Impression: 1. Small retention cysts versus polyps in the left maxillary alveolar recess and left sphenoid sinus with otherwise clear paranasal sinuses. 2. Bilateral middle turbinate yashira bullosa. Please note that all CT scans at this facility use dose modulation, iterative reconstruction, and/or weight-based dosing when appropriate to reduce radiation dose to as low as reasonably achievable. Dictated by Jeffrey Morales MD @ 02/22/2024 9:44:06 AM Signed by:?Jeffrey Morales MD @02/22/2024 9:44:06 AM (Electronic Signature)
--- OUTSIDE RECORDS SUMMARY | 2024-02-22 08:06 | XMS_ITS | Clinical Summary ---
Author Name Unknown Organization [employer] Address [place], [place] [address] Care Team Providers Care Assistant Principal Name Role Phone Merline Rebolledo MD Primary Care Provider + Kristopher Sotelo MD Unavailable [phone] Allergies Active Allergy Reactions Criticality Noted Date [...] cified 06/24/2009 Overview: Dr Kimberly Wisdom in [place] for meds Other acne 09/07/2006 Acromegaly Resolved [...] Niesha ng Gigi n Chris ns Delivery Location:[facility] Comments:shoulder dyst ocia 11/27 22w 6d [...] T Respiratory Rate 16 12/29/2019 9:56 AM AGRICULTURAL CHEMIST Oxygen Saturation 100% 09/24/2016 6:44 PM AGRICULTURAL CHEMIST Inhaled Oxygen Concentration - - Weight 71.2 kg (157 lb) 10/09/2019 9:51 AM AGRICULTURAL CHEMIST Height 176.3 cm (5' 9.41) 06/02/2016 7:55 [...] this topic Medical Devices Implanted Type Area Steel Die Engraver Device Identifier Shelf Expiration Date Model / Serial / Lot Implnt Transphenoidal Sellar Porex - [id number] Implanted:Qty: 1 on 11/04/2010 at [facility] [employer] [id number]# / / [id number] Mesh Pelvic 4x6in Gynemesh - [id number] Implanted:Qty: 1 on 06/02/2016 by Eli De León MD at [facility] Pelvis [employer] Womens H / Uro GPSL# / / [id number] Procedures Procedure Name Priority Date/Time Associated Diagnosis Comments LIPID PANEL W REFLEX MEASURED LDL Routine 11/26/2021 9:20 AM AGRICULTURAL CHEMIST Pituitary macroadenoma (HC) SHOPPING INSPECTOR THIN PREP PAP SCREEN IMAGED Routine 05/26/2018 12:00 PM CDT ANTI HIV 1/2 Routine 01/22/2011 3:20 PM CDT High-risk supervision ANTI HCV Routine 01/22/2011 3:20 PM CDT High-risk supervision from Last 3 Months or Most Recently Relevant to Health Maintenance Results * (ABNORMAL) LIPID PANEL W REFLEX MEASURED LDL (11/26/2021 9:20 AM AGRICULTURAL CHEMIST) CHOLESTEROL,TOTAL 215(H) 100 - 199 mg/dL 11/26/2021 3:40 PM AGRICULTURAL CHEMIST [facility] [employer] LABORATORY-[facility] TRAL LABORATORY TRIGLYCERIDES 104 <150 mg/dL 11/26/2021 3:40 PM AGRICULTURAL CHEMIST [facility] LABORATORY-[facility] TRAL LABORATORY HDL CHOLESTEROL 80 >40 mg/dL 3:40 PM AGRICULTURAL CHEMIST [facility] LABORATORY-[facility] TRAL LABORATORY NON-HDL CHOLESTEROL 135 <145 mg/dl 11/26/2021 3:40 PM AGRICULTURAL CHEMIST [facility] TRAL LABORATORY CHOL/HDL RATIO 2.69 <4.50 11/26/2021 3:40 PM AGRICULTURAL CHEMIST [facility] LABORATORY-[facility] TRAL LABORATORY LDL CHOLESTEROL 114 <=130 mg/dL 11/26/2021 3:40 PM AGRICULTURAL CHEMIST [facility] TRAL LABORATORY VLDL CHOLESTEROL 21 <=30 mg/dL 11/26/2021 3:40 PM AGRICULTURAL CHEMIST [facility] LABORATORY-[facility] TRAL LABORATORY PROVIDER ORDERED STATUS RANDOM 11/26/2021 3:40 PM AGRICULTURAL CHEMIST [facility] TRAL LABORATORY Blood BLOOD SPECIMEN / Unknown Venipuncture / Unknown 11/26/2021 9:20 AM AGRICULTURAL CHEMIST 11/26/2021 9:21 AM AGRICULTURAL CHEMIST Kristopher Sotelo MD [facility] [address] [place] [address], * SHOPPING INSPECTOR THIN PREP PAP SCREEN IMAGED (05/26/2018 12:00 PM CDT) Case Report Gynecologic Cytology Report ? Case: [id number] ? Authorizing Provider: ??Merline Rebolledo MD ??Collected: ? 05/26/2018 1200 ? First Screen: ?Roberto Roman ? Received: ?05/29/2018 1006 ? Specimen: ?SHOPPING INSPECTOR ThinPrep Vial Screening, Vaginal ? 06/07/2018 1:55 PM CDT [facility]TRAL LAB[facility] INTERPRETATION/ RESULT NEGATIVE FOR INTRAEPITHELIAL LESION OR MALIGNANCY (NIL) (none) 06/07/2018 1:55 PM CDT [facility] ENTRAL LABORATORY IMEN ADEQUACY Satisfactory for evaluation Endocervical component present 06/07/2018 1:55 PM CDT [facility] HPV REQUEST HPV and PAP 06/07/2018 1:55 PM CDT [facility] Menstrual Status Hysterectomy-cerv ix absent 06/07/2018 1:55 PM CDT [facility] Automated Review Successful 06/07/2018 1:55 PM CDT [facility] Comment:Specimen processed s uccessfully by automated scraper burrer device, ThinPrep Imaging System, [employer] ANCILLARY TESTING SHOPPING INSPECTOR HPV Ordered, Please see separate report 06/07/2018 1:55 PM CDT [facility] Note The pap test is a screening [...] screened and interpreted at [facility] - [address], [place] [address] [address] [facility] - [address]; [place] [address] and - [address]; [place] [address] and [facility] [address]; [place] [address] 06/07/2018 1:55 PM CDT [facility] Other VAGINAL SWAB / Unknown 05/26/2018 12:00 PM CDT 05/29/2018 10:06 AM CDT Merline Rebolledo MD PATHOLOGY/CYTOLO GY [facility] LABORATORY [address] [place] [address], [place] * HEPATITIS C [57539.2] (01/22/2011 3:20 PM CDT) ANTI HCV Non-reacti ve [facility] Blood specimen (specimen) BLOOD SPECIMEN / Unknown 01/22/2011 3:20 PM CDT 01/22/2011 2:54 PM CDT Kostas Almonte DO SEND OUTS [facility] LABORATORY INTERNAL ZIP [phone] [address] * ANTI HIV 1/2 (01/22/2011 3:20 PM CDT) ANTI HIV 1/2 Non-reacti ve [facility] Blood specimen (specimen) BLOOD SPECIMEN / Unknown 01/22/2011 3:20 PM CDT 01/22/2011 2:54 PM CDT Kostas Almonte DO SEND OUTS Performing Organization Address [facility] Co de Phone Number [facility] LABORATORY INTERNAL ZIP [phone] [address] from Last 3 Months or Most Recently [...] 8:22 AM 12/07/2009 3:49 PM Care Teams Assistant Principal Relationship Specialty Start Date End Date Merline Rebolledo MD [address] [place] [address] PCP - General Family Practice 10/09/19 Kristopher Sotelo MD [address] [place] [address] [address] [place] [address] Endocrinology 02/19/23
== END 2024-02-22 08:01 | disposition home or self-care (01) ==
LOC: CT 08:00
PROVIDERS: PCP Nurse Practitioner Family; Visit Provider Nurse Practitioner Family
DX: J32.9 Chronic sinusitis, unspecified (principal); J34.3 Hypertrophy of nasal turbinates; H10.9 Unspecified conjunctivitis
CPT/HCPCS: 70486